=== PATIENT | female | born 1955 | race Caucasian/White ===

== ENCOUNTER 2016-06-12 17:30 | Emergency (ER) | payer BC ==
[2016-06-12 20:43] VITALS: BP 150/78
--- NOTE | 2016-06-13 13:20 | CR ---
INDICATION: Left shoulder pain. LEFT SHOULDER, COMPLETE: Four views of the left shoulder were obtained 2016. No comparisons were available. Very minimal degenerative changes are noted at the AC joint. The glenohumeral joint appears to be intact. There appears to be some minimal calcification near the greater tuberosity, raising question of minimal calcific tendinitis. No other bone or joint abnormality was identified. IMPRESSION: 1. Minimal degenerative changes AC joint. 2. Question minimal calcific tendinitis. 3. No definite acute abnormality. [facility]
--- NOTE | 2016-06-13 13:21 | CR ---
INDICATION: Chest pain - left shoulder pain. CHEST: PA and lateral views of the chest, 06/12/2016, were compared with 2010, revealing evidence of exogenous obesity. The heart did not appear to be enlarged. The aorta is somewhat tortuous. Overlying snaps are noted. Fusion is noted in the lower cervical spine. An active infiltrate or effusion was not identified. No significant scoliosis is seen on today's examination. IMPRESSION: No acute process. MTDD
--- NOTE | 2016-06-14 09:40 | ER ---
DATE SEEN: 06/12/2016 TIME SEEN: The patient was seen at 1956 hours. CHIEF COMPLAINT: This 61-year-old has 3/10 chest pain, it is sternal and increases with coughing. No difficulty sleeping last night, but it came on last night. She feels slightly lightheaded. This is a new chest pain, never had chest pain before. Mild diaphoresis and most significant she feels her arms are heavy. This is very new and unusual for her. In reviewing her activities of daily living, her , while she wa off to [place], took me aside as related to me that she does very little housekeeping. He has a detailer to come and take care of her ultrasound tester. She has diabetes and she was recently seen at [facility] and has lost 100% vision in her left eye and has 25% loss of the right eye secondary to diabetic retinopathy. She has been taking high doses of prednisone, now has tapered down to 10 mg prednisone daily. She does not walk very much. She watches TV a lot, is blind in the left eye. She gets short of breath with moving around and walking. She smokes a pack of cigarettes a day. Uses insulin and oral hypoglycemics. She does not drive. She used thyroid medicine in the past, not on thyroid medicine now. Previous surgery, status post bilateral MTP fusion surgery. Weight is approximately 200 pounds. She is 5 feet 5 inches. Her BMI IS 33.3 kilograms per square meter. MEDICATIONS: 1. Farxiga 10 mg daily. 2. Diflucan 150 mg daily. 3. Insulin 34 units daily. 4. Amaryl 4 mg one tablet in the morning, half tablet in the evening. 5. Artificial tears. 6. Amlodipine 5 mg daily. 7. BuSpar 15 mg daily. 8. Azathioprine 100 mg by mouth one time daily (the [facility] clinician has used azathioprine tried to get her off the prednisone and gradually decreased and tapering down the prednisone.). 9. Amitriptyline 100 mg one and half tablets at bedtime plus 25-mg tablets for a total of 175 mg at bedtime. 10.Lexapro 20 mg daily. 11.Seroquel 400 mg one and half tablets evening. 12.Trazodone 1 to 2 tablets every night at bedtime. 13.Mirapex 0.5 mg 1.5 tablets daily. 14.Ongoing antibiotics; Septra DS Friday, Friday, Friday. 15.Prednisone 10 mg daily. She had been tapering as of 05/06, 30 mg daily and then switched to 20 mg daily for 7 days on 05/09/2016. 16.Lasix 20 mg daily. 17.Omeprazole 40 mg daily. 18.Metformin 1000 mg b.i.d. 19.Vitamin C. 20.Albuterol as needed. 21.Metoprolol succinate daily. 22.Metronidazole gel for acne rosacea. 23.Tretinoin (Retin-A) 0.1% cream. 24.Vitamin D. 25.Hydroxyzine 50 mg p.r.n. at bedtime for insomnia 1 to 2 capsules. 26.Unisom 25 mg per day. 27.Ibuprofen 800 mg b.i.d. p.r.n. OTHER SURGERIES: Cholecystectomy, appendectomy, tonsillectomy, fusion of metatarsophalangeal joints of bilateral lower extremities, keratomileusis, cervical fusion C5-C6, diskectomy, left total knee replacement and open left knee arthroscopy. Chronic anxiety. REVIEW OF SYSTEMS: HEENT: Vision compromise from eyes, 100% loss in left eye and right eye is 25% decreased. GENERAL: Personality disorder. Borderline personality. Degenerative disk and lumbar spine disc disease, arthritis secondary to rheumatoid arthritis, GERD, hypertension, chronic kidney disease, myalgia, myositis, sinusitis, noncardiac chest pain, opioid dependence. History of small bowel obstruction, type 2 diabetes, asthma, intermittent chest discomfort which has been going on for the last 8 days. CARDIORESPIRATORY: Otherwise, negative. No shortness of breath or cough, no chronic obstructive lung disease. She is in denial regarding obstructive lung disease even though she smokes a cigarette a day. She is emphatic she does not have chronic lung disease. "She has been told by her doctors her lungs are perfectly normal." (Later her took me aside to talk confidentially about her health when when she was in the X-ray department. He does not want her to know what he said to me, otherwise she would be very angry with him). GASTROINTESTINAL: Denies nausea, vomiting, diarrhea, constipation, blood in the stool, black tarry changes in stools. MUSCULOSKELETAL: Marked weakness. She has noted decreased arm strength last night. Denies falls. : Negative. PHYSICAL EXAMINATION: VITAL SIGNS: Blood pressure 135/78, heart rate 107, respirations 15, oxygen saturation 95% on room air, temperature 37.6 degrees. The patient is 90.718 kilos. BMI is 33.3. GENERAL: Overweight woman who is very emphatic on what disease she does and does not have. She denies emphatically she does not have chronic lung disease. HEENT: PERRLA intact. Left eye opacification, right eye marked retinal arterial narrowing and moderate copper wiring. Some retinal arterial narrowing, mild pale discoloration of macular degeneration, no focal hard or soft exudates, no retinal detachment. No suggestion of laser therapy. Pharynx without erythema. No cervical adenopathy. No bruits in neck. LUNGS: Clear to auscultation without rales, rhonchi, or wheezes. HEART: S1, S2. No murmur. No chest wall discomfort. ABDOMEN: Soft. No guarding. No abdominal discomfort. Increased abdominal girth. No tenderness noted. EXTREMITIES: Lower extremities without edema. NEUROLOGICAL: Deep tendon reflexes, upper extremities present. Knee jerks present. Ankle jerks absent. Decreased sensation in lower extremities. Sensitivity to touch. Lower extremities (peripheral neuropathy). Gait appropriate. Strength appropriate, but she complains she is weak all over. LABORATORY DATA: White count 11,500, PMNs 85, lymphs 10, monos 5, hemoglobin 15.2, D-dimer less than 100. Automated chemistry; sodium 135, potassium 4.2, chloride 104, bicarb 20, low [id number] ratio of 23 and slightly elevated. Creatinine 0.6, BUN 14, glucose 188, ALT trace elevated at 28, AST is 17, troponin less than 0.01. Albumin slightly on the high 4.5, total protein 7.8, TSH 0.63. While the patient was getting a chest x-ray, her took me off to a different room to talk to me separately and stated she would get very angry at him if she knew he was talking to me about her. He has noted: 1. Progressive mental fall away. 2. Decrease in vision. 3. Less activity, sits around the house, does get up and walk around, but mostly sits in a chair and watches TV all day. 4. Smokes a pack of cigarettes per day and is "in your face" if you should even raise a question of stopping smoking. She is very angry about that and very defensive. 5. He is discouraged by her behavior and also inadequate activity. She is a couch potato. CHEST X-RAY: No infiltrate noted. Mild cardiomegaly. ASSESSMENT: 1. The patient's chief complaint, marked heaviness in the arm, weakness secondary to prednisone use. 2. Retinal vascular changes secondary to diabetic retinopathy with left eye blindness and right eye 25%, decrease of vision on the basis of [facility] reports and also patient's retinal macular degeneration. 3. Obesity. 4. Sedentary activity. 5. Personality disorder. 6. Hypothyroidism. 7. Renal disease. 8. Generalized myalgia. 9. Rheumatoid arthritis. 10.History of small bowel obstruction. 11.Previous cervical disk surgery with fusion and radiculopathy. 12.Arthritis. 13.Anxiety. 14.Left shoulder discomfort, AC joint arthritis, otherwise no evidence of abnormality. No subluxation. Decreased range of motion secondary to rheumatoid arthritis. Probably, decreased use of her shoulder. No evidence for cardiomegaly. 15. Very defensive about her smoking and in denial of COPD. In denial about the mental fall away. 16. Diabetic peripheral neuropathy. 17. Diabetic GI autonomic neuropathy. OTHER DIAGNOSES: 1. Diabetic retinopathy. 2. Treated hypothyroidism in the past and had no suggestion of hypothyroidism present. 3. Obesity. 4. Deconditioning. 5. Diabetes. 6. The patient stated that she has never had an angiogram, but her notes that she had angiogram 04/17. She does not remember anything apparently at that occasion. She lost consciousness and has complete amnesia about the angiogram. She did not remember anything because of excessive opiate use. 7. Progressive mental fall away. 8. Personality disorder. The patient is "somewhat in my face". She is very adamant. She does not want to stop smoking. She is very defensive. She was angry that I should bring up the idea that she needs a nicotine patch and Nicorette gum to decrease diabetic complications, cardiovascular changes. 9. Significant deconditioning. 10.Ideally, her would like to have her get a MOCA test, because of her mental fall away. To suggest such testing makes her very angry, consequently, to save face, I had to apologize for even bringing up the issue. She was somewhat forgiving of this, but I have a sense that it annoyed her that I considered even introducing medication to help her stop smoking or even address the issue of mental fall away. PLAN: The patient is to increase activity and walking. Continue current medications. Follow up with doctor in a week. Informed that her decreased strength is a function of having used prednisone. It is good that she is gradually tapering off prednisone and using azathioprine. She is still on a high dose of prednisone. Deconditioning and not walking is a significant problem for her. Follow up with the doctor in a week. ADDITIONAL COMMENT: She is allergic to Ativan, Cymbalta, Depakote, Duragesic, and erythromycin. /[id number] JARRED/TYLER SHAW
== END 2016-06-12 21:04 | disposition home or self-care (01) ==
LOC: FB.ED 17:30
DX: R53.1 Weakness (principal); E11.319 Type 2 diabetes mellitus with unspecified diabetic retinopathy without macular edema; E03.9 Hypothyroidism, unspecified; M06.9 Rheumatoid arthritis, unspecified; F41.9 Anxiety disorder, unspecified; F60.9 Personality disorder, unspecified; M79.1 Myalgia; M19.90 Unspecified osteoarthritis, unspecified site; K21.9 Gastro-esophageal reflux disease without esophagitis; I12.9 Hypertensive chronic kidney disease with stage 1 through stage 4 chronic kidney disease, or unspecified chronic kidney disease; N18.9 Chronic kidney disease, unspecified; J45.909 Unspecified asthma, uncomplicated; F17.210 Nicotine dependence, cigarettes, uncomplicated; E66.9 Obesity, unspecified; Z68.33 Body mass index [BMI] 33.0-33.9, adult; Z79.4 Long term (current) use of insulin; Z79.899 Other long term (current) drug therapy; Z90.49 Acquired absence of other specified parts of digestive tract; Z96.652 Presence of left artificial knee joint; Z98.890 Other specified postprocedural states
CPT/HCPCS: 36415; 71020; 73030-LT; 80053; 83880; 84443; 84484; 85025; 85379; 93005; 99283

== ENCOUNTER 2016-10-11 13:55 | Emergency (ER) | payer BC ==
[2016-10-11] MEDS ORDERED: HYDROmorphone 2 MG/ML SDV IVPUSH ONE ×2 (14:28→15:33)
[2016-10-11] MEDS ORDERED: diphenhydrAMINE 50 MG/ML SDV IVPUSH ONE (14:29)
[2016-10-11] MEDS ORDERED: Metoclopramide 10 MG/2 ML SDV IVPUSH ONE (14:30)
[2016-10-11 15:35] VITALS: BP 119/66
--- NOTE | 2016-10-15 13:36 | ER ---
DATE SEEN: 10/11/2016 HISTORY OF PRESENT ILLNESS: Carla presents because she has developed pain in her foot and also was given intravenous antibiotic therapy for infection that occurred with her right toe as of September 09. Apparently, at that time, an orthopedic screw was removed and she was treated with antibiotic. The year before, she had screws placed for hallux valgus revision. The patient is diabetic. She takes Farxiga 10 mg daily, dapagliflozin, propanediol 10 mg daily plus metformin 1000 mg daily plus glimepiride 4 mg daily. Other medication for depression, escitalopram 20 mg daily, amitriptyline 125 mg at bedtime, amlodipine for hypertension 5 mg daily, Metoprolol-XL 25 mg daily. REVIEW OF SYSTEMS: The patient denies early satiety. Denies compromise in vision, but she when she thinks about it, she does have slight compromise of vision. She wears glasses. She has significant peripheral diabetic neuropathy. So much so, it goes from mid calf to her feet and has severe burning. This burning has gotten extensively worse after she has been put on intravenous daily antibiotic therapy of Rocephin 1 g IV, (as of September 09, 2016). She does not feel this is related to her Rocephin therapy. Also she denies autonomic nervous system bowel symptoms - she denies constipation, decreased or delayed transit time, GERD, or increased satiety with eating. She denies headaches. REVIEW OF SYSTEMS: HEENT: Denies headaches. Denies sinusitis, sore throat, neck pain. CARDIORESPIRATORY: Denies shortness of breath, cough, chest pain. Irregular rate and rhythm. No near syncope or syncope. GI: Denies nausea, vomiting, diarrhea, constipation, blood in the stool, black tarry stool, or reflex or hepatitis. : Denies frequency, urgency, or dysuria. MUSCULOSKELETAL: Denies chronic muscle aches. ALLERGIES: The patient has allergies to multiple medicines, Depakote, duloxetine, erythromycin base, fentanyl (the Duragesic patch cause irritation, contact dermatitis, but did not have an allergic reaction to the medication itself), lorazepam. PHYSICAL EXAMINATION: VITAL SIGNS: Blood pressure 130/75, heart rate 88 and regular, respirations 18, oxygen saturation 98%. Temperature is 36.4 degrees centigrade. CONSTITUTIONAL: Alert, mildly overweight woman, who is sitting in a [employer] chair. She is getting her chronic daily antibiotic therapy for the infection in her right hallux. HEENT: PERRLA intact. Pharynx without abnormality. NECK: Supple. LUNGS: Clear to auscultation without rales, rhonchi, or wheezes. HEART: S1, S2. No irregular rate or rhythm. ABDOMEN: Soft. No guarding. No abdominal discomfort. No rebound. No distention. No CVA percussion tenderness. PELVIC: Not performed. LOWER EXTREMITIES: Without edema. The right lower extremity has cellulitis, which is being treated with no evidence for erythema presently. Deep tendon reflexes hypoactive in upper and lower extremities. NEURO: Cranial nerves 2 through 12 intact. Oriented x3. Gait intact. She is exquisitely sensitive to the stocking distribution in her lower extremities. Any touch causes pain and discomfort. ASSESSMENT: 1. The patient has extensive peripheral diabetic neuropathy. She has used Lyrica in the past, but she noted it did not make any difference. In fact, made her depression worse. She is willing to use Lyrica now because she thought perhaps it might be helpful to her diabetic neuropathy and is going to try even if her depression gets slightly worse. 2. Insulin-dependent diabetes. 3. Cellulitis, right hallux is healing resolving (wonder if there is osteomyelitis and it is the reason why she getting intravenous therapy). 4. Overweight. 5. Has an obligation to go to a social event this weekend and "family wants her to be on top of her game". 6. Diabetic peripheral neuropathy is getting the best of her. She would like some medicine for this. PLAN: 1. Trial of Lyrica. The patient wants to try it even if it makes her depression worse, but if it makes a difference in her pain in her legs, she wants to try Lyrica 100 mg daily for three days and then increase it to b.i.d. 2. She was given Dilaudid 1 mg IV, and this seemed to make a dramatic difference as she felt and would give her an additional 0.5 mg before she left. 3. Plan to treat the peripheral neuropathy with Lyrica and also she has oxycodone without Tylenol. She theoretically is allergic to Tylenol. She is also allergic to valproic acid, duloxetine, erythromycin base, fentanyl, lorazepam. 4. Apparently, she is not allergic to fentanyl, but she is allergic to the contact adhesive. She would like very much to try the fentanyl, so she does not have the up and down with therapeutic level of p.o. pain medicine. She will be getting a prescription for fentanyl patches one every 72 hours, 50 mcg. If necessary, she can use two patches of 50 mcg each for a total of 100 mcg. Follow up with doctor in a week. DIAGNOSES: 1. Peripheral diabetic neuropathy, extensive pain. 2. Cellulitis, right foot, resolving, treated with antibiotic. 3. Overweight. 4. Hypertension. 5. Diabetes, insulin dependent. TIME SEEN: The patient was seen at 1400 and 45 minutes spent with the patient. /[id number] JARRDE/TYLER SHAW
== END 2016-10-11 15:44 | disposition home or self-care (01) ==
LOC: FB.ED 13:55
DX: L03.115 Cellulitis of right lower limb (principal); E11.42 Type 2 diabetes mellitus with diabetic polyneuropathy; I10 Essential (primary) hypertension; Z79.4 Long term (current) use of insulin; Z79.899 Other long term (current) drug therapy; Z88.1 Allergy status to other antibiotic agents; Z88.8 Allergy status to other drugs, medicaments and biological substances
CPT/HCPCS: 96374; 96375; 96376; 99283; J1170; J1200; J2765

== ENCOUNTER 2017-12-05 22:39 | Inpatient (IN) | payer BC ==
[2017-12-05] MEDS ORDERED: Sodium Chloride 0.9% 1,000 ML IV ONE (23:32)
[2017-12-05] MEDS ORDERED: fentaNYL 100 MCG/2 ML SDV IVPUSH ONE (23:33)
[2017-12-05] MEDS ORDERED: Ondansetron 4 MG/2 ML SDV IVPUSH ONE (23:34)
--- NOTE | 2017-12-05 23:43 | EDM.PDOC ---
ED HPI GENERAL MEDICAL PROBLEM - General Chief Complaint: Abdominal Pain Stated Complaint: ABDOMINAL PAIN Time Seen by Provider: 12/05/17 23:14 Source of Information: Reports: Patient, Other History Limitations: Reports: No Limitations - History of Present Illness INITIAL COMMENTS - FREE TEXT/NARRATIVE: Carla is a 62-year-old slightly overweight woman nonsmoker, nonalcohol drinker, comes in with 2-3 days duration increasing abdominal pain and constipation and she's not had bowel movement 3 days. is giving her an enema with 0 results. She's also tried a citrate with 0 results only followed by vomiting after noon. Patient is blind. Does not eat extra fiber. Has not had a fever and denies back pain or street of e renal stones passage. Abdominal Pain Score (Numeric/FACES): 10 - Related Data Allergies Allergy/AdvReac Type Severity Reaction Status Date / Time divalproex sodium Allergy Itching Verified 12/06/17 01:45 [From Depakote] duloxetine [From Cymbalta] Allergy Rash Verified 12/06/17 01:45 erythromycin base Allergy Itching Verified 12/06/17 01:45 Home Meds: Home Meds QUEtiapine [SEROquel] 400 mg PO BEDTIME 10/11/16 [History] amLODIPine [Norvasc] 10 mg PO DAILY 10/11/16 [History] Aspirin [Halfprin] 81 mg PO DAILY 12/06/17 [History] Cholecalciferol (Vitamin D3) [Vitamin D3] 1,000 units PO DAILY 12/06/17 [History ] Escitalopram [Lexapro] 10 mg PO BEDTIME 12/06/17 [History] Glimepiride [Amaryl] 1 mg PO WITHDINNER 12/06/17 [History] Glimepiride [Amaryl] 2 mg PO WITHBREAKFAST 12/06/17 [History] Insulin Aspart [NovoLOG] 5 units SUBCUT TIDMEALS 12/06/17 [History] Insulin Degludec [Tresiba Flextouch U-100] 20 units SUBCUT BEDTIME 12/06/17 [ History] Lactulose 30 ml PO BID 12/06/17 [History] Metoprolol Succinate [Toprol XL] 25 mg PO DAILY 12/06/17 [History] Omeprazole 40 mg PO DAILY 12/06/17 [History] Pramipexole [Mirapex] 0.75 mg PO BEDTIME 12/06/17 [History] Travoprost [Travatan Z] 1 drop EYERT BEDTIME 12/06/17 [History] azaTHIOprine [Imuran] 200 mg PO DAILY 12/06/17 [History] hydrOXYzine pamoate [Vistaril] 25 mg PO BID PRN 12/06/17 [History] metFORMIN [Glucophage] 1,000 mg PO BIDMEALS 12/06/17 [History] predniSONE [Prednisone] 10 mg PO DAILY 12/06/17 [History] Past Medical History HEENT History: Reports: Impaired Vision, Other (See Below) Other HEENT History: pt legally blind Cardiovascular History: Reports: Hypertension Respiratory History: Reports: Asthma Gastrointestinal History: Reports: GERD, Other (See Below) Other Gastrointestinal History: snall bowel obstruction Genitourinary History: Reports: Renal Disease Musculoskeletal History: Reports: Arthritis Other Musculoskeletal History: n Psychiatric History: Reports: Addiction, Other (See Below) Other Psychiatric History: personality disorder Endocrine/Metabolic History: Reports: Diabetes, Type II - Infectious Disease History Infectious Disease History: Reports: Chicken Pox - Past Surgical History GI Surgical History: Reports: Colonoscopy Social & Family History - Family History Family Medical History: Noncontributory - Caffeine Use Caffeine Use: Reports: Soda ED ROS GENERAL - Review of Systems Review Of Systems: See Below Constitutional: Reports: Fatigue HEENT: Reports: No Symptoms, Other (Optic neuritis legally blind) Respiratory: Reports: No Symptoms, Other (Asthma symptomatic presently) Cardiovascular: Reports: No Symptoms, Other (Attention) Endocrine: Reports: No Symptoms GI/Abdominal: Reports: Abdominal Pain, Decreased Appetite, Distension, Nausea, Other (Gross small bowel obstruction surgical intervention) : Reports: Incontinence Musculoskeletal: Reports: Other (Generalized myalgiafibromyalgia) Skin: Reports: No Symptoms Neurological: Reports: No Symptoms Psychiatric: Reports: Anxiety (Personality disorder Anxiety history of), Depression, Other (Borderline personality disorder. His history of hospitalizations weeks ago for polysubstance abuse at [facility]) Immunologic: Reports: No Symptoms ED EXAM, GI/ABD - Physical Exam Exam: See Below Text/Narrative:: Agent has severe abdominal pain is mildly overweight denies vomiting and has tried with an enema and make citrate which resulted in vomiting Exam Limited By: No Limitations General Appearance: Alert, WD/WN, Severe Distress Eyes: Bilateral: Normal Appearance Ears: Normal External Exam, Normal TMs Throat/Mouth: Normal Inspection, Other (Dry mucosal) Head: Atraumatic, Normocephalic Neck: Normal Inspection, Supple, Non-Tender, Full Range of Motion Respiratory/Chest: No Respiratory Distress, Lungs Clear, Normal Breath Sounds, No Accessory Muscle Use, Chest Non-Tender Cardiovascular: Normal Peripheral Pulses, Regular Rate, Rhythm, No Edema, No JVD , No Murmur, No Rub GI/Abdominal Exam: Distended, Guarding, Rebound, Tender, Abnormal Bowel Sounds, Other ( Moderate heeltap induced abdominal pain suggesting peritonitis mild CVA percussion tenderness bilateral) (Female) Exam: Deferred Back Exam: Normal Inspection Extremities: Normal Inspection Neurological: Alert, Oriented, CN II-XII Intact, Normal Cognition, Normal Gait, Normal Reflexes, No Motor/Sensory Deficits, Other (Cranial nerve II is abnormal because she has blindness) Psychiatric: Normal Affect, Other (A pleasant woman) Skin Exam: Warm, Dry, Intact Course - Vital Signs Last Recorded V/S: Last Vital Signs Temp 36.8 C 12/06/17 16:00 Pulse 93 12/06/17 16:00 Resp 20 12/06/17 16:00 BP 124/65 12/06/17 16:00 Pulse Ox 92 L 12/06/17 16:00 - Orders/Labs/Meds Labs: Laboratory Tests 12/05/17 12/05/17 12/05/17 Range/Units 23:50 23:50 23:50 WBC 13.1 H (4.5-12.0) X10-3/uL RBC 4.99 (3.23-5.20) x10(6)uL Hgb 13.7 (11.5-15.5) g/dL Hct 43.2 (30.0-51.3) % MCV 86.6 (80-96) fL MCH 27.4 L (27.7-33.6) pg MCHC 31.6 L (32.2-35.4) g/dL RDW 18.2 H (11.5-15.5) % Plt Count 556 H (125-369) X10(3)uL MPV 6.9 L (7.4-10.4) fL Neut % (Auto) 80.8 (46-82) % Lymph % (Auto) 11.3 L (13-37) % [place] % (Auto) 7.2 (4-12) % Eos % (Auto) 0 L (1.0-5.0) % Baso % (Auto) 0 (0-2) % Neut # (Auto) 10.6 H (1.6-8.3) # Lymph # (Auto) 1.5 (0.6-5.0) # [place] # (Auto) 0.9 (0.0-1.3) # Eos # (Auto) 0.0 (0.0-0.8) # Baso # (Auto) 0.1 (0.0-0.2) # Add Manual Diff Neutrophils % (Manual) (46-82) % Band Neutrophils % (0-6) % Lymphocytes % (Manual) (13-37) % Monocytes % (Manual) (4-12) % Eosinophils % (Manual) (0-5) % Anisocytosis Sodium (135-145) mmol/L Potassium (3.5-5.3) mmol/L Chloride (100-110) mmol/L Carbon Dioxide (21-32) mmol/L BUN (7-18) mg/dL Creatinine (0.55-1.02) mg/dL Est Cr Clr Drug Dosing Estimated GFR (MDRD) (>60) BUN/Creatinine Ratio (9-20) Glucose (80-116) mg/dL Lactic Acid 1.9 (0.4-2.2) mmol/L Calcium (8.6-10.2) mg/dL Total Bilirubin (0.1-1.3) mg/dL AST (5-25) IU/L ALT (12-36) U/L Alkaline Phosphatase (56-112) IU/L Troponin I < 0.017 L (<0.017-0.056) ng/mL Total Protein (6.0-8.0) g/dL Albumin (3.2-4.6) g/dL Globulin g/dL Albumin/Globulin Ratio TSH, Ultra Sensitive (0.36-3.74) IU/mL Urine Color (YELLOW) Urine Appearance (CLEAR) Urine pH (5.0-6.5) Ur Specific [place] (1.010-1.025) Urine Protein (NEGATIVE) mg/dL Urine Glucose (UA) (NEGATIVE) mg/dL Urine Ketones (NEGATIVE) mg/dL Urine Occult Blood (NEGATIVE) Urine Nitrite (NEGATIVE) Urine Bilirubin (NEGATIVE) Urine Urobilinogen (NEGATIVE) mg/dL Ur Leukocyte Esterase (NEGATIVE) Urine RBC (0) Urine WBC (0) Ur Squamous Epith Cells (NS,R,O) Urine Bacteria (NS) 12/05/17 12/05/17 12/06/17 Range/Units 23:50 23:50 01:10 WBC (4.5-12.0) X10-3/uL RBC (3.23-5.20) x10(6)uL Hgb (11.5-15.5) g/dL Hct (30.0-51.3) % MCV (80-96) fL MCH (27.7-33.6) pg MCHC (32.2-35.4) g/dL RDW (11.5-15.5) % Plt Count (125-369) X10(3)uL MPV (7.4-10.4) fL Neut % (Auto) (46-82) % Lymph % (Auto) (13-37) % [place] % (Auto) (4-12) % Eos % (Auto) (1.0-5.0) % Baso % (Auto) (0-2) % Neut # (Auto) (1.6-8.3) # Lymph # (Auto) (0.6-5.0) # [place] # (Auto) (0.0-1.3) # Eos # (Auto) (0.0-0.8) # Baso # (Auto) (0.0-0.2) # Add Manual Diff Neutrophils % (Manual) (46-82) % Band Neutrophils % (0-6) % Lymphocytes % (Manual) (13-37) % Monocytes % (Manual) (4-12) % Eosinophils % (Manual) (0-5) % Anisocytosis Sodium 139 (135-145) mmol/L Potassium 3.5 (3.5-5.3) mmol/L Chloride 102 (100-110) mmol/L Carbon Dioxide 22 (21-32) mmol/L BUN 12 (7-18) mg/dL Creatinine 0.8 (0.55-1.02) mg/dL Est Cr Clr Drug Dosing TNP Estimated GFR (MDRD) > 60 (>60) BUN/Creatinine Ratio 15.0 (9-20) Glucose 155 H (80-116) mg/dL Lactic Acid (0.4-2.2) mmol/L Calcium 9.9 (8.6-10.2) mg/dL Total Bilirubin 0.5 (0.1-1.3) mg/dL AST 32 H (5-25) IU/L ALT 90 H (12-36) U/L Alkaline Phosphatase 103 (56-112) IU/L Troponin I (<0.017-0.056) ng/mL Total Protein 8.0 (6.0-8.0) g/dL Albumin 3.7 (3.2-4.6) g/dL Globulin 4.3 g/dL Albumin/Globulin Ratio 0.9 TSH, Ultra Sensitive 1.90 (0.36-3.74) IU/mL Urine Color Yellow (YELLOW) Urine Appearance Slightly cloudy (CLEAR) Urine pH 7.0 H (5.0-6.5) Ur Specific [place] 1.005 L (1.010-1.025) Urine Protein Negative (NEGATIVE) mg/dL Urine Glucose (UA) >1000 H (NEGATIVE) mg/dL Urine Ketones Negative (NEGATIVE) mg/dL Urine Occult Blood Moderate H (NEGATIVE) Urine Nitrite Positive H (NEGATIVE) Urine Bilirubin Negative (NEGATIVE) Urine Urobilinogen Normal (NEGATIVE) mg/dL Ur Leukocyte Esterase Negative (NEGATIVE) Urine RBC 5-10 (0) Urine WBC 0-5 (0) Ur Squamous Epith Cells Few H (NS,R,O) Urine Bacteria Moderate H (NS) 12/06/17 12/06/17 Range/Units 06:50 06:50 WBC 14.2 H (4.5-12.0) X10-3/uL RBC 4.88 (3.23-5.20) x10(6)uL Hgb 13.7 (11.5-15.5) g/dL Hct 42.8 (30.0-51.3) % MCV 87.6 (80-96) fL MCH 27.9 (27.7-33.6) pg MCHC 31.9 L (32.2-35.4) g/dL RDW 18.1 H (11.5-15.5) % Plt Count 572 H (125-369) X10(3)uL MPV 6.9 L (7.4-10.4) fL Neut % (Auto) (46-82) % Lymph % (Auto) (13-37) % [place] % (Auto) (4-12) % Eos % (Auto) (1.0-5.0) % Baso % (Auto) (0-2) % Neut # (Auto) (1.6-8.3) # Lymph # (Auto) (0.6-5.0) # [place] # (Auto) (0.0-1.3) # Eos # (Auto) (0.0-0.8) # Baso # (Auto) (0.0-0.2) # Add Manual Diff Yes Neutrophils % (Manual) 87 H (46-82) % Band Neutrophils % 3 (0-6) % Lymphocytes % (Manual) 5 L (13-37) % Monocytes % (Manual) 4 (4-12) % Eosinophils % (Manual) 1 (0-5) % Anisocytosis Moderate H Sodium (135-145) mmol/L Potassium (3.5-5.3) mmol/L Chloride (100-110) mmol/L Carbon Dioxide (21-32) mmol/L BUN (7-18) mg/dL Creatinine (0.55-1.02) mg/dL Est Cr Clr Drug Dosing Estimated GFR (MDRD) (>60) BUN/Creatinine Ratio (9-20) Glucose (80-116) mg/dL Lactic Acid (0.4-2.2) mmol/L Calcium (8.6-10.2) mg/dL Total Bilirubin (0.1-1.3) mg/dL AST (5-25) IU/L ALT (12-36) U/L Alkaline Phosphatase (56-112) IU/L Troponin I < 0.017 L (<0.017-0.056) ng/mL Total Protein (6.0-8.0) g/dL Albumin (3.2-4.6) g/dL Globulin g/dL Albumin/Globulin Ratio TSH, Ultra Sensitive (0.36-3.74) IU/mL Urine Color (YELLOW) Urine Appearance (CLEAR) Urine pH (5.0-6.5) Ur Specific [place] (1.010-1.025) Urine Protein (NEGATIVE) mg/dL Urine Glucose (UA) (NEGATIVE) mg/dL Urine Ketones (NEGATIVE) mg/dL Urine Occult Blood (NEGATIVE) Urine Nitrite (NEGATIVE) Urine Bilirubin (NEGATIVE) Urine Urobilinogen (NEGATIVE) mg/dL Ur Leukocyte Esterase (NEGATIVE) Urine RBC (0) Urine WBC (0) Ur Squamous Epith Cells (NS,R,O) Urine Bacteria (NS) Meds: Medications Discontinued Medications Generic Name Dose Route Start Last Admin Trade Name Freq PRN Reason Stop Dose Admin Acetaminophen 650 mg 12/06/17 03:54 Tylenol PO Q4H PRN Pain (Mild 1-3)/fever Bisacodyl 5 mg 12/06/17 03:54 Dulcolax PO DAILY PRN Constipation Enoxaparin Sodium 40 mg 12/06/17 09:00 12/06/17 10:35 Lovenox SUBCUT 40 mg DAILY MAZIN Administration Escitalopram Oxalate 10 mg 12/06/17 21:00 Lexapro PO BEDTIME MAZIN Fentanyl 100 mcg 12/05/17 23:33 12/05/17 23:51 Sublimaze IVPUSH 12/05/17 23:34 100 mcg ONETIME ONE Administration Fentanyl 100 mcg 12/06/17 01:03 12/06/17 01:10 Sublimaze IVPUSH 12/06/17 01:04 100 mcg ONETIME ONE Administration Fentanyl 100 mcg 12/06/17 09:19 Sublimaze IVPUSH Q30M PRN Abdominal Pain Haloperidol Lactate 1 mg 12/06/17 14:31 12/06/17 14:43 Haldol IM 12/06/17 14:32 1 mg ONETIME ONE Administration Hydrocortisone Sodium Succinate 25 mg 12/06/17 09:30 12/06/17 10:41 Solu-Cortef IVPUSH 25 mg Q8H MAZIN Administration Hydromorphone HCl 1 mg 12/06/17 03:16 12/06/17 03:20 Dilaudid IVPUSH 12/06/17 03:17 1 mg ONETIME ONE Administration Hydromorphone HCl Confirm 12/06/17 03:21 12/06/17 09:48 Dilaudid Administered 12/06/17 03:22 Not Given Dose 2 mg .ROUTE .STK-MED ONE Hydromorphone HCl 0.5 mg 12/06/17 03:42 12/06/17 12:45 Dilaudid IVPUSH 0.5 mg Q2H PRN Administration Pain (severe 7-10) Sodium Chloride 1,000 mls @ 999 mls/hr 12/05/17 23:32 12/06/17 03:31 Normal Saline IV 12/06/17 00:32 999 mls/hr .BOLUS ONE Administration Lactated Ringer's 1,000 mls @ 125 mls/hr 12/06/17 03:45 Ringers, Lactated IV ASDIRECTED MAZIN Sodium Chloride 1,000 mls @ 100 mls/hr 12/06/17 00:55 12/06/17 08:51 Normal Saline IV 100 mls/hr ASDIRECTED MAZIN Administration Potassium Chloride/Sodium Chloride 1,000 mls @ 125 mls/hr 12/06/17 09:45 08/18 10:33 Normal Saline With 20 Meq Kcl IV 125 mls/hr Q8H MAZIN Administration Influenza Virus Vaccine 1 each 12/06/17 04:11 Pharmacy To Dose - Influenza Vaccine IM 12/06/17 04:12 ONETIME ONE Insulin Human Lispro 0 unit 12/06/17 12:00 12/06/17 11:10 Humalog SUBCUT Not Given TIDMEALS [facility] Protocol Iopamidol 100 ml 12/06/17 00:10 12/06/17 00:44 Isovue-370 (76%) IV 12/06/17 00:11 100 ml . DIRECTED ONE Administration Latanoprost 0 ml 12/06/17 21:00 Xalatan 0.005% Ophth Soln EYERT BEDTIME MAZIN Lidocaine HCl 6 ml 12/06/17 09:15 12/06/17 09:11 Glydo MM 12/06/17 09:16 6 ml ONETIME ONE Administration Lidocaine HCl Confirm 12/06/17 08:48 12/06/17 09:12 Glydo Administered 12/06/17 08:49 Not Given Dose 6 ml .ROUTE .STK-MED ONE Lidocaine HCl 6 ml 12/06/17 09:15 12/06/17 09:12 Glydo MM 12/06/17 09:16 Not Given ONETIME ONE Lorazepam Confirm 12/06/17 01:57 12/06/17 08:38 Ativan Administered 12/06/17 01:58 Not Given Dose 2 mg .ROUTE .STK-MED ONE Lorazepam 1 mg 12/06/17 01:50 12/06/17 01:57 Ativan IVPUSH 12/06/17 01:51 1 mg ONETIME ONE Administration Lorazepam 1 mg 12/06/17 09:20 12/06/17 10:36 Ativan IVPUSH 1 mg Q8H PRN Administration agitation, restless legs Metoprolol Tartrate 2.5 mg 12/06/17 10:00 12/06/17 13:38 Lopressor IVPUSH 2.5 mg Q4H MAZIN Administration Ondansetron HCl 4 mg 12/05/17 23:34 12/05/17 23:51 Zofran IVPUSH 12/05/17 23:35 4 mg ONETIME ONE Administration Ondansetron HCl 4 mg 12/06/17 03:42 Zofran IV Q4H PRN Nausea/Vomiting Ondansetron HCl 4 mg 12/06/17 03:54 Zofran Odt PO Q4H PRN nausea, able to take PO Pantoprazole Sodium 40 mg 12/06/17 09:30 12/06/17 10:45 Protonix Iv IVPUSH 40 mg Q24H MAZIN Administration Quetiapine Fumarate 400 mg 12/06/17 21:00 Seroquel PO BEDTIME MAZIN Departure - Departure Time of Disposition: 00:30 Disposition: Admitted As Inpatient 67 Condition: Good Clinical Impression: Depressive personality disorder, Abdominal pain in female patient, H/O psychiatric hospitalization, History of cervical spinal surgery, Diabetic foot infection, Depression with somatization Hypertension Qualifiers: Hypertension type: essential hypertension Qualified Code(s): I10 - Essential ( primary) hypertension - Discharge Information
[2017-12-06] MEDS ORDERED: Iopamidol 755 Mg/ML 100 ML Bottle IV ONE (00:10)
[2017-12-06] MEDS: Sodium Chloride 0.9% 1,000 ML IV SCH ×2 (00:55→08:51)
[2017-12-06] MEDS ORDERED: fentaNYL 100 MCG/2 ML SDV IVPUSH ONE (01:03)
[2017-12-06] MEDS ORDERED: LORazepam 2 MG/ML SDV IVPUSH ONE (01:50)
[2017-12-06] MEDS ORDERED: LORazepam 2 MG/ML SDV ONE (01:57)
[2017-12-06] MEDS ORDERED: HYDROmorphone 2 MG/ML SDV IVPUSH ONE (03:16)
[2017-12-06] MEDS ORDERED: HYDROmorphone 2 MG/ML SDV ONE (03:21)
[2017-12-06] MEDS ORDERED: Ondansetron 4 MG/2 ML SDV IV PRN (03:42)
[2017-12-06] MEDS ORDERED: Lactated Ringers 1,000 ML IV SCH (03:45)
[2017-12-06] MEDS ORDERED: Bisacodyl 5 MG Tab PO PRN (03:54)
[2017-12-06] MEDS ORDERED: Ondansetron 4 MG Tab.DIS PO PRN (03:54)
[2017-12-06] MEDS ORDERED: Acetaminophen 325 MG Tab PO PRN (03:54)
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
[2017-12-06] MEDS ORDERED: Lidocaine 2% HCl 6 ML JEL.PF.APP ONE (08:48)
[2017-12-06] MEDS ORDERED: Non-Formulary Medication 1 Each (Cholecalciferol (Vitamin D3) [Vitamin D3] 1,000 UNITS) PO SCH (09:00)
[2017-12-06] MEDS ORDERED: Enoxaparin 40 MG/0.4 ML Syringe SUBCUT SCH (09:00)
[2017-12-06] MEDS ORDERED: Non-Formulary Medication 1 Each (Amlodipine [Norvasc] 10 MG) PO SCH (09:00)
[2017-12-06] MEDS ORDERED: Lidocaine 2% HCl 6 ML JEL.PF.APP MM ONE ×2 (09:15)
[2017-12-06] MEDS ORDERED: fentaNYL 100 MCG/2 ML SDV IVPUSH PRN (09:19)
[2017-12-06] MEDS ORDERED: LORazepam 2 MG/ML SDV IVPUSH PRN (09:20)
[2017-12-06] MEDS ORDERED: Hydrocortisone Sodium Succinate 100 MG/2 ML SDV IVPUSH SCH (09:30)
[2017-12-06] MEDS ORDERED: Pantoprazole 40 MG Vial IVPUSH SCH (09:30)
--- NOTE | 2017-12-06 09:44 | PCM.HP ---
H&P History of Present Illness - General Date of Service: 12/06/17 Admit Problem/Dx: Admission Diagnosis/Problem Admission Diagnosis/Problem Abdominal discomfort Source of Information: Patient, Old Records, Provider History Limitations: Reports: Altered Mental Status - History of Present Illness Initial Comments - Free Text/Narative: Patient is a 62-year-old female with a very complex past medical history who presents with reported 5 days of abdominal pain, nausea, vomiting. She tells me she was in her usual state of good health up until 5 days ago when she started to develop gradually but rapidly progressive abdominal pain. She continued to attempt to eat but vomited up everything that she tried to eat. She had no fevers but did have chills and sweats. Pain continued to worsen until she finally presented to the emergency department the night prior to admission, was evaluated and found to have a possible small bowel obstruction. Was admitted for further treatment and monitoring. On admission white count was 13.1, electrolytes and chemistries were fairly unremarkable. She had mild elevation in her LFTs which is chronic for her. Urine was positive for nitrates glucose and blood but with regards to urine sxs patient was asymptomatic. Past medical history very complex and includes: #1 recent hospitalization 11/21/17 for encephalopathy secondary to polypharmacy and psychiatric illness. Was inpatient for 7 days. #2 history of optic neuritis on immunosuppressant therapy with prednisone, currently taking 10-20 mg a day. This has been adjusted over the last 6 months multiple times to 20 mg then back down to 10 mg. Patient is blind in the left eye, still has some vision in the right eye. #3 hypertension #4 asthma #5 diabetes mellitus type 2 with last A1c 8.0% on 08/26/17. #6 history of small bowel obstruction requiring a repair in the remote past. Recent clinic visit on 11/10/17. Pain, nausea, vomiting and no passing of gas. This resolved. #7 gastroesophageal reflux disease #8 rheumatoid arthritis with positive rheumatoid factor. It is unclear to me whether or not this is been treated and I don't see any follow-up with rheumatology. #9 history of right first metatarsal arthrodesis infection with MSSA in 2017 requiring long course IV antibiotics for 6 weeks. #10 significant psychiatric illness including borderline personality disorder, anxiety and depression, opioid dependence in remission, with recent psychiatric hospitalization resulting in multiple medication changes. #11 fibromyalgia Family history: Mother and father both in old age. Social history: The patient is and lives with her . Children are grown and gone. She smokes 1-1-1/2 packs of cigarettes per day. She has a rare beer but does not drink on a regular basis. She is not employed. Medication list and allergies reviewed. The patient has an allergy to the Duragesic adhesive but not to fentanyl, she has become agitated with Ativan in the past but received it last evening without difficulty. Abdominal Pain Score (Numeric/FACES): 10 - Related Data Allergies/Adverse Reactions: Allergies Allergy/AdvReac Type Severity Reaction Status Date / Time divalproex sodium Allergy Itching Verified 12/06/17 01:45 [From Depakote] duloxetine [From Cymbalta] Allergy Rash Verified 12/06/17 01:45 erythromycin base Allergy Itching Verified 12/06/17 01:45 Home Medications: Home Meds Escitalopram [Lexapro] 10 mg PO BEDTIME 10/11/16 [History] Glimepiride 2 mg PO DAILY 10/11/16 [History] Metoprolol Succinate [Toprol XL] 25 mg PO DAILY 10/11/16 [History] QUEtiapine [SEROquel] 400 mg PO BEDTIME 10/11/16 [History] amLODIPine [Norvasc] 10 mg PO DAILY 10/11/16 [History] Cholecalciferol (Vitamin D3) [Vitamin D3] 1,000 units PO DAILY 12/06/17 [History ] Metoprolol Succinate [Toprol XL] 25 mg PO DAILY 12/06/17 [History] Omeprazole 40 mg PO DAILY 12/06/17 [History] Pramipexole [Mirapex] 0.5 mg PO BEDTIME 12/06/17 [History] Travoprost [Travatan Z] 1 drop EYERT BEDTIME 12/06/17 [History] metFORMIN [Glucophage] 1,000 mg PO BIDMEALS 12/06/17 [History] predniSONE [Prednisone] 10 mg PO DAILY 12/06/17 [History] Past Medical History HEENT History: Reports: Impaired Vision, Other (See Below) Other HEENT History: pt legally blind Cardiovascular History: Reports: Hypertension Respiratory History: Reports: Asthma Gastrointestinal History: Reports: GERD, Other (See Below) Other Gastrointestinal History: snall bowel obstruction Genitourinary History: Reports: Renal Disease [employer] History: Reports: Musculoskeletal History: Reports: Arthritis Other Musculoskeletal History: n Psychiatric History: Reports: Addiction, Other (See Below) Other Psychiatric History: personality disorder Endocrine/Metabolic History: Reports: Diabetes, Type II - Infectious Disease History Infectious Disease History: Reports: Chicken Pox - Past Surgical History GI Surgical History: Reports: Colonoscopy Social & Family History - Family History Family Medical History: Noncontributory - Tobacco Use Smoking Status *Q: Current Every Day Smoker Years of Tobacco use: 30 Packs/Tins Daily: 1 Second Hand Smoke Exposure: No - Caffeine Use Caffeine Use: Reports: Soda Other Caffeine Use: 4-6 cans a day - Recreational Drug Use Recreational Drug Use: No H&P Review of Systems - Review of Systems: Review Of Systems: See Below (Difficult to obtain due to patient sedation and inconsistent answers.) General: Reports: Chills, Malaise, Weakness, Fatigue, Weight Loss HEENT: Reports: Other (chronic vision loss.) Pulmonary: Reports: No Symptoms Cardiovascular: Reports: No Symptoms Gastrointestinal: Reports: Abdominal Pain, Anorexia, Nausea, Vomiting Genitourinary: Reports: No Symptoms Musculoskeletal: Reports: Other (No new sxs, chronic pain.) Skin: Reports: No Symptoms Psychiatric: Reports: Other (See HPI. No current new complaints.) Exam - Exam Exam: See Below - Vital Signs Vital Signs: Last Vital Signs Temp 36.8 C 12/06/17 04:01 Pulse 98 12/06/17 04:01 Resp 18 12/06/17 04:01 BP 154/81 H 12/06/17 04:01 Pulse Ox 91 L 12/06/17 04:01 Weight: 85.23 kg - Exam General: Cooperative, Sedated (rousable, somewhat groggy and struggles to answer questions, saying "I can't think." ) HEENT: PERRLA, EOMI, Mucosa Moist & [place], Pupils Equal Neck: Supple Lungs: Clear to Auscultation, Normal Respiratory Effort Cardiovascular: Regular Rate, Regular Rhythm GI/Abdominal Exam: Distended, Tender, Abnormal Bowel Sounds (hyperactive bowel sounds. Diffusely tender and distended, but no guarding or rigidity.) Back Exam: Normal Inspection Extremities: No Pedal Edema Skin: Warm, Dry, Intact - Patient Data Lab Results Last 24 hrs: Laboratory Results - last 24 hr 12/05/17 12/05/17 12/05/17 Range/Units 23:50 23:50 23:50 WBC 13.1 H (4.5-12.0) X10-3/uL RBC 4.99 (3.23-5.20) x10(6)uL Hgb 13.7 (11.5-15.5) g/dL Hct 43.2 (30.0-51.3) % MCV 86.6 (80-96) fL MCH 27.4 L (27.7-33.6) pg MCHC 31.6 L (32.2-35.4) g/dL RDW 18.2 H (11.5-15.5) % Plt Count 556 H (125-369) X10(3)uL MPV 6.9 L (7.4-10.4) fL Neut % (Auto) 80.8 (46-82) % Lymph % (Auto) 11.3 L (13-37) % [place] % (Auto) 7.2 (4-12) % Eos % (Auto) 0 L (1.0-5.0) % Baso % (Auto) 0 (0-2) % Neut # (Auto) 10.6 H (1.6-8.3) # Lymph # (Auto) 1.5 (0.6-5.0) # Greenlee # (Auto) 0.9 (0.0-1.3) # Eos # (Auto) 0.0 (0.0-0.8) # Baso # (Auto) 0.1 (0.0-0.2) # Add Manual Diff Neutrophils % (Manual) (46-82) % Band Neutrophils % (0-6) % Lymphocytes % (Manual) (13-37) % Monocytes % (Manual) (4-12) % Eosinophils % (Manual) (0-5) % Anisocytosis Sodium (135-145) mmol/L Potassium (3.5-5.3) mmol/L Chloride (100-110) mmol/L Carbon Dioxide (21-32) mmol/L BUN (7-18) mg/dL Creatinine (0.55-1.02) mg/dL Est Cr Clr Drug Dosing Estimated GFR (MDRD) (>60) BUN/Creatinine Ratio (9-20) Glucose (80-116) mg/dL Lactic Acid 1.9 (0.4-2.2) mmol/L Calcium (8.6-10.2) mg/dL Total Bilirubin (0.1-1.3) mg/dL AST (5-25) IU/L ALT (12-36) U/L Alkaline Phosphatase (56-112) IU/L Troponin I < 0.017 L (<0.017-0.056) ng/mL Total Protein (6.0-8.0) g/dL Albumin (3.2-4.6) g/dL Globulin g/dL Albumin/Globulin Ratio TSH, Ultra Sensitive (0.36-3.74) IU/mL Urine Color (YELLOW) Urine Appearance (CLEAR) Urine pH (5.0-6.5) Ur Specific [place] (1.010-1.025) Urine Protein (NEGATIVE) mg/dL Urine Glucose (UA) (NEGATIVE) mg/dL Urine Ketones (NEGATIVE) mg/dL Urine Occult Blood (NEGATIVE) Urine Nitrite (NEGATIVE) Urine Bilirubin (NEGATIVE) Urine Urobilinogen (NEGATIVE) mg/dL Ur Leukocyte Esterase (NEGATIVE) Urine RBC (0) Urine WBC (0) Ur Squamous Epith Cells (NS,R,O) Urine Bacteria (NS) 12/05/17 12/05/17 12/06/17 Range/Units 23:50 23:50 01:10 WBC (4.5-12.0) X10-3/uL RBC (3.23-5.20) x10(6)uL Hgb (11.5-15.5) g/dL Hct (30.0-51.3) % MCV (80-96) fL MCH (27.7-33.6) pg MCHC (32.2-35.4) g/dL RDW (11.5-15.5) % Plt Count (125-369) X10(3)uL MPV (7.4-10.4) fL Neut % (Auto) (46-82) % Lymph % (Auto) (13-37) % [place]lee % (Auto) (4-12) % Eos % (Auto) (1.0-5.0) % Baso % (Auto) (0-2) % Neut # (Auto) (1.6-8.3) # Lymph # (Auto) (0.6-5.0) # Greenlee # (Auto) (0.0-1.3) # Eos # (Auto) (0.0-0.8) # Baso # (Auto) (0.0-0.2) # Add Manual Diff Neutrophils % (Manual) (46-82) % Band Neutrophils % (0-6) % Lymphocytes % (Manual) (13-37) % Monocytes % (Manual) (4-12) % Eosinophils % (Manual) (0-5) % Anisocytosis Sodium 139 (135-145) mmol/L Potassium 3.5 (3.5-5.3) mmol/L Chloride 102 (100-110) mmol/L Carbon Dioxide 22 (21-32) mmol/L BUN 12 (7-18) mg/dL Creatinine 0.8 (0.55-1.02) mg/dL Est Cr Clr Drug Dosing TNP Estimated GFR (MDRD) > 60 (>60) BUN/Creatinine Ratio 15.0 (9-20) Glucose 155 H (80-116) mg/dL Lactic Acid (0.4-2.2) mmol/L Calcium 9.9 (8.6-10.2) mg/dL Total Bilirubin 0.5 (0.1-1.3) mg/dL AST 32 H (5-25) IU/L ALT 90 H (12-36) U/L Alkaline Phosphatase 103 (56-112) IU/L Troponin I (<0.017-0.056) ng/mL Total Protein 8.0 (6.0-8.0) g/dL Albumin 3.7 (3.2-4.6) g/dL Globulin 4.3 g/dL Albumin/Globulin Ratio 0.9 TSH, Ultra Sensitive 1.90 (0.36-3.74) IU/mL Urine Color Yellow (YELLOW) Urine Appearance Slightly cloudy (CLEAR) Urine pH 7.0 H (5.0-6.5) Ur Specific [place] 1.005 L (1.010-1.025) Urine Protein Negative (NEGATIVE) mg/dL Urine Glucose (UA) >1000 H (NEGATIVE) mg/dL Urine Ketones Negative (NEGATIVE) mg/dL Urine Occult Blood Moderate H (NEGATIVE) Urine Nitrite Positive H (NEGATIVE) Urine Bilirubin Negative (NEGATIVE) Urine Urobilinogen Normal (NEGATIVE) mg/dL Ur Leukocyte Esterase Negative (NEGATIVE) Urine RBC 5-10 (0) Urine WBC 0-5 (0) Ur Squamous Epith Cells Few H (NS,R,O) Urine Bacteria Moderate H (NS) 12/06/17 12/06/17 Range/Units 06:50 06:50 WBC 14.2 H (4.5-12.0) X10-3/uL RBC 4.88 (3.23-5.20) x10(6)uL Hgb 13.7 (11.5-15.5) g/dL Hct 42.8 (30.0-51.3) % MCV 87.6 (80-96) fL MCH 27.9 (27.7-33.6) pg MCHC 31.9 L (32.2-35.4) g/dL RDW 18.1 H (11.5-15.5) % Plt Count 572 H (125-369) X10(3)uL MPV 6.9 L (7.4-10.4) fL Neut % (Auto) (46-82) % Lymph % (Auto) (13-37) % [place] % (Auto) (4-12) % Eos % (Auto) (1.0-5.0) % Baso % (Auto) (0-2) % Neut # (Auto) (1.6-8.3) # Lymph # (Auto) (0.6-5.0) # [place]lee # (Auto) (0.0-1.3) # Eos # (Auto) (0.0-0.8) # Baso # (Auto) (0.0-0.2) # Add Manual Diff Yes Neutrophils % (Manual) 87 H (46-82) % Band Neutrophils % 3 (0-6) % Lymphocytes % (Manual) 5 L (13-37) % Monocytes % (Manual) 4 (4-12) % Eosinophils % (Manual) 1 (0-5) % Anisocytosis Moderate H Sodium (135-145) mmol/L Potassium (3.5-5.3) mmol/L Chloride (100-110) mmol/L Carbon Dioxide (21-32) mmol/L BUN (7-18) mg/dL Creatinine (0.55-1.02) mg/dL Est Cr Clr Drug Dosing Estimated GFR (MDRD) (>60) BUN/Creatinine Ratio (9-20) Glucose (80-116) mg/dL Lactic Acid (0.4-2.2) mmol/L Calcium (8.6-10.2) mg/dL Total Bilirubin (0.1-1.3) mg/dL AST (5-25) IU/L ALT (12-36) U/L Alkaline Phosphatase (56-112) IU/L Troponin I < 0.017 L (<0.017-0.056) ng/mL Total Protein (6.0-8.0) g/dL Albumin (3.2-4.6) g/dL Globulin g/dL Albumin/Globulin Ratio TSH, Ultra Sensitive (0.36-3.74) IU/mL Urine Color (YELLOW) Urine Appearance (CLEAR) Urine pH (5.0-6.5) Ur Specific [place] (1.010-1.025) Urine Protein (NEGATIVE) mg/dL Urine Glucose (UA) (NEGATIVE) mg/dL Urine Ketones (NEGATIVE) mg/dL Urine Occult Blood (NEGATIVE) Urine Nitrite (NEGATIVE) Urine Bilirubin (NEGATIVE) Urine Urobilinogen (NEGATIVE) mg/dL Ur Leukocyte Esterase (NEGATIVE) Urine RBC (0) Urine WBC (0) Ur Squamous Epith Cells (NS,R,O) Urine Bacteria (NS) Result Diagrams: 12/06/17 06:50 12/05/17 23:50 - Problem List (1) SBO (small bowel obstruction) SNOMED Code(s): 644445094 ICD Code: K56.609 - UNSP INTESTNL OBST, UNSP TO PARTIAL VERSUS COMPLETE OBST Status: Acute Current Visit: Yes Problem Details: CT scan shows moderate dilatation of the mid small bowel with prominent in the central upper Pelvis in the area of an anastomotic michael. Given the patient's immunosuppression, recent episode of similar symptoms in November and now 5 days of symptoms at this point, I did ask Dr. Montgomery to see the patient in consultation for management of her small bowel obstruction. NG was placed for gastric decompression. IV PPI therapy ordered. Fentanyl for pain. Because of the patient's obesity and high risk medications being given here in the hospital , I'm going to ask that she be on continuous oximetry. (2) DM2 (diabetes mellitus, type 2) SNOMED Code(s): 68198606 ICD Code: E11.9 - TYPE 2 DIABETES MELLITUS WITHOUT COMPLICATIONS Status: Acute Current Visit: Yes Problem Details: Previously well-controlled, with increase in prednisone the patient's control has become more poor recently. Because she'll be nothing by mouth here in the hospital, we will do sliding scale insulin and 4 times a day glucometer checks. (3) Steroid dependence SNOMED Code(s): 57823894 ICD Code: [id number] - Status: Acute Current Visit: Yes Problem Details: Patient is at risk for both flare of her optic neuritis and also adrenal insufficiency. I'm going to do IV hydrocortisone 25 mg every 8 hours and monitor closely. (4) Restless leg syndrome SNOMED Code(s): 83641818 ICD Code: G25.81 - RESTLESS LEGS SYNDROME Status: Acute Current Visit: Yes Problem Details: IV Ativan when necessary until the patient is able to take Mirapex again. (5) History of psychiatric disorder SNOMED Code(s): 755884398 ICD Code: Z86.59 - PERSONAL HISTORY OF OTHER MENTAL AND BEHAVIORAL DISORDERS Status: Acute Current Visit: Yes Problem Details: We'll try to give the patient's Seroquel this evening by clamping the NG. Also her Lexapro. Will have fentanyl and Ativan available IV for withdrawal symptoms, pain, and agitation. (6) Hypertension SNOMED Code(s): 75494974 ICD Code: I10 - ESSENTIAL (PRIMARY) HYPERTENSION Status: Acute Current Visit: Yes Problem Details: We will use IV beta vishnu therapy and titrated as needed. Qualifiers: Hypertension type: essential hypertension Qualified Code(s): I10 - Essential (primary) hypertension (7) DVT prophylaxis SNOMED Code(s): 702358306, 081713592 ICD Code: [id number] - Status: Acute Current Visit: Yes Problem Details: Lovenox, SCDs. Problem List Initiated/Reviewed/Updated: Yes Orders Last 24hrs: Active Orders 24 hr Category Date Time Status Patient Status [ADT] Routine ADT 12/06/17 03:42 Active Influenza Vaccine Charge [RC] .DISCHARGE Care 12/06/17 04:11 Active Notify Provider Consults [RC] ASDIRECTED Care 12/06/17 08:28 Ordered Notify Provider Vital Signs [RC] ASDIRECTED Care 12/06/17 03:45 Active Overnight Pulse Oximetry [RC] Click to Edit Care 12/06/17 09:21 Ordered Oxygen Therapy [RC] PRN Care 12/06/17 03:42 Active POC Glucose [Blood Glucose Check, Bedside] [RC] Care 12/06/17 09:17 Ordered QIDACANDBED Up ad Maylin [RC] 09,13,17,21 Care 12/06/17 03:42 Active Vital Signs [RC] 04,08,12,16,20,00 Care 12/06/17 03:42 Active Consult to Physician [CONS] Routine Cons 12/06/17 08:27 Ordered Full Liquid Diet [DIET] Diet 12/06/17 Breakfast Active Abdomen Pelvis w Cont [CT] Stat Exams 12/05/17 23:35 Taken NG Tube Placement [CR] Routine Exams 12/06/17 08:45 Ordered Acetaminophen [Tylenol] Med 12/06/17 03:54 Active 650 mg PO Q4H PRN Bisacodyl [Dulcolax] Med 12/06/17 03:54 Active 5 mg PO DAILY PRN Cholecalciferol (Vitamin D3) [Vitamin D3] Med 12/06/17 09:00 Ordered 1,000 units PO DAILY Enoxaparin [Lovenox] Med 12/06/17 09:00 Active 40 mg SUBCUT DAILY Escitalopram [Lexapro] Med 12/06/17 21:00 Ordered 10 mg PO BEDTIME HYDROmorphone [Dilaudid] Med 12/06/17 03:42 Active 0.5 mg IVPUSH Q2H PRN Hydrocortisone Sod Succinate [Solu-CORTEF] Med 12/06/17 09:30 Ordered 25 mg IVPUSH Q8H Insulin Lispro [HumaLOG] Med 12/06/17 12:00 Ordered See Protocol SUBCUT TIDMEALS LORazepam [Ativan] Med 12/06/17 09:20 Ordered 1 mg IVPUSH Q8H PRN Lactated Ringers [Ringers, Lactated] 1,000 ml Med 12/06/17 03:45 Active IV ASDIRECTED Metoprolol Tartrate [Lopressor] Med 12/06/17 09:30 Ordered 2.5 mg IVPUSH Q4H Ondansetron [Zofran ODT] Med 12/06/17 03:54 Active 4 mg PO Q4H PRN Ondansetron [Zofran] Med 12/06/17 03:42 Active 4 mg IV Q4H PRN Pantoprazole [ProTONIX IV] Med 12/06/17 09:30 Ordered 40 mg IVPUSH Q24H QUEtiapine [SEROquel] Med 12/06/17 21:00 Ordered 400 mg PO BEDTIME Sodium Chloride 0.9% [Normal Saline] 1,000 ml Med 12/06/17 00:55 Active IV ASDIRECTED Travoprost [Travatan Z 0.004% Ophth Soln] Med 12/06/17 21:00 Ordered 1 drop EYERT BEDTIME amLODIPine [Norvasc] Med 12/06/17 09:00 Pending 10 mg PO DAILY fentaNYL [Sublimaze] Med 12/06/17 09:19 Ordered 100 mcg IVPUSH Q30M PRN Pulse Oximetry Continuous Monitoring [OM.PC] Routine Oth 12/06/17 09:21 Ordered Medication Orders Acetaminophen (Tylenol) 650 mg PO Q4H PRN PRN Reason: Pain (Mild 1-3)/fever Bisacodyl (Dulcolax) 5 mg PO DAILY PRN PRN Reason: Constipation Enoxaparin Sodium (Lovenox) 40 mg SUBCUT DAILY MAZIN Fentanyl (Sublimaze) 100 mcg IVPUSH Q30M PRN PRN Reason: Abdominal Pain Hydrocortisone Sodium Succinate (Solu-Cortef) 25 mg IVPUSH Q8H MAZIN Hydromorphone HCl (Dilaudid) 0.5 mg IVPUSH Q2H PRN PRN Reason: Pain (severe 7-10) Lactated Ringer's (Ringers, Lactated) 1,000 mls @ 125 mls/hr IV ASDIRECTED [facility] Sodium Chloride (Normal Saline) 1,000 mls @ 100 mls/hr IV ASDIRECTED MAZIN Last Admin: 12/06/17 08:51 Dose: 100 mls/hr Infusion: 12/06/17 08:51 Dose: 100 mls/hr Admin: 12/06/17 00:55 Dose: 100 mls/hr Insulin Human Lispro (Humalog) 0 unit SUBCUT TIDMEALS [facility]; Protocol Lorazepam (Ativan) 1 mg IVPUSH Q8H PRN PRN Reason: agitation, restless legs Metoprolol Tartrate (Lopressor) 2.5 mg IVPUSH Q4H MAZIN Non-Formulary Medication (Amlodipine [Norvasc]) 10 mg PO DAILY MAZIN Non-Formulary Medication (Cholecalciferol (Vitamin D3) [Vitamin D3]) 1,000 units PO DAILY MAZIN Non-Formulary Medication (Escitalopram [Lexapro]) 10 mg PO BEDTIME MAZIN Ondansetron HCl (Zofran) 4 mg IV Q4H PRN PRN Reason: Nausea/Vomiting Ondansetron HCl (Zofran Odt) 4 mg PO Q4H PRN PRN Reason: nausea, able to take PO Pantoprazole Sodium (Protonix Iv) 40 mg IVPUSH Q24H MAZIN Quetiapine Fumarate (Seroquel) 400 mg PO BEDTIME MAZIN Travoprost (Travatan Z 0.004% Ophth Soln) ml EYERT BEDTIME MAZIN Assessment/Plan Comment:: Due to patient's altered mental status, was not addressed with the patient. However on previous hospitalizations at [place], most recently 05/21/17, the patient was a full code.
[2017-12-06] MEDS ORDERED: NS + KCl 20mEq/L 1,000 ML IV SCH (09:45)
[2017-12-06] MEDS: HYDROmorphone 2 MG/ML SDV IVPUSH PRN ×2 (10:37→12:45)
[2017-12-06] MEDS: Metoprolol Tartrate 5 MG/5 ML SDV IVPUSH SCH ×2 (10:39→13:38)
[2017-12-06] MEDS ORDERED: Insulin Lispro 100 Unit/ML 3 ML KwikPen SUBCUT SCH (12:00)
[2017-12-06] MEDS ORDERED: Haloperidol Lactate 5 MG/ML SDV IM ONE (14:31)
--- NOTE | 2017-12-06 15:23 | PCM.DCSUM1 ---
Discharge Summary - Hospital Course Free Text/Narrative:: Date of admission: 12/06/2017 Date of transfer: 12/06/2017 Admission diagnosis: Small bowel obstruction Discharge diagnosis: Small bowel obstruction with significant mental illness with patient unable to take by mouth meds. Injectable antipsychotics not available. Patient pulled out NG. On immunosuppressants for optic neuritis. Consults: Dr. Montgomery General Surgery. He felt the patient's psychiatric illness and immunosuppression made her a poor candidate for keeping her at a critical access hospital and she was likely to exceed the 96 hours of care here. Procedures: NG placement, patient pulled out. CT abd/pelvis which showed a dilatation at the previous site of anastamosis of small bowel. HPI: Patient is a 62-year-old female with a very complex past medical history who presents with reported 5 days of abdominal pain, nausea, vomiting. She tells me she was in her usual state of good health up until 5 days ago when she started to develop gradually but rapidly progressive abdominal pain. She continued to attempt to eat but vomited up everything that she tried to eat. She had no fevers but did have chills and sweats. Pain continued to worsen until she finally presented to the emergency department the night prior to admission, was evaluated and found to have a possible small bowel obstruction. Was admitted for further treatment and monitoring. On admission white count was 13.1, electrolytes and chemistries were fairly unremarkable. She had mild elevation in her LFTs which is chronic for her. Urine was positive for nitrates glucose and blood but with regards to urine sxs patient was asymptomatic. Hx of SBO in past with surgical resection, recent clinic visit with similar sxs, which were milder and resolved spontaneously. Hospital course: Patient was somewhat agitated about being unable to take her PO meds. Was able to give most IV but our pharmacy does not carry any injectable antipyschotics other than Haldol. Patient was started on ativan for anxiety and fentanyl for pain. Continued to be confused but VS remained stable. She was voiding and NG had out about 4-500 ml before she pulled the tube out. She was then given 1 mg IM haldol with some improvement. Dr. Montgomery requested she be transferred to a higher level of care at that point as he felt she was inappropriate for our facility without psychiatric management, and particularly given her immunosuppression she would be better managed at a higher level facility. Patient accepted in transfer by Dr. Elias at [facility] at 1530. Will be transferred by [facility]. - Discharge Data Discharge Date: 12/06/17 Discharge Disposition: DC/Tfer to Acute Hospital 02 Condition: Good - Discharge Diagnosis/Problem(s) (1) SBO (small bowel obstruction) SNOMED Code(s): 551223961 ICD Code: K56.609 - UNSP INTESTNL OBST, UNSP TO PARTIAL VERSUS COMPLETE OBST Status: Acute Current Visit: Yes Problem Details: CT scan shows moderate dilatation of the mid small bowel with prominent in the central upper Pelvis in the area of an anastomotic michael. Given the patient's immunosuppression, recent episode of similar symptoms in November and now 5 days of symptoms at this point, I did ask Dr. Montgomery to see the patient in consultation for management of her small bowel obstruction. NG was placed for gastric decompression. IV PPI therapy ordered. Fentanyl for pain. Because of the patient's obesity and high risk medications being given here in the hospital , she was kept on continuous oximetry. NG pulled out by patient. Ulises recommended higher level of care for the patient given immunosuppression and psychiatric history which is quite complex. (2) DM2 (diabetes mellitus, type 2) SNOMED Code(s): 16400793 ICD Code: E11.9 - TYPE 2 DIABETES MELLITUS WITHOUT COMPLICATIONS Status: Acute Current Visit: Yes Problem Details: Previously well-controlled, with increase in prednisone the patient's control poorer. Sliding scale insulin and 4 times a day glucometer checks. (3) Steroid dependence SNOMED Code(s): 83098565 ICD Code: [id number] - Status: Acute Current Visit: Yes Problem Details: IV hydrocortisone 25 mg every 8 hours and monitor closely. (4) Restless leg syndrome SNOMED Code(s): 00291428 ICD Code: G25.81 - RESTLESS LEGS SYNDROME Status: Acute Current Visit: Yes Problem Details: IV Ativan when necessary until the patient is able to take Mirapex again. (5) History of psychiatric disorder SNOMED Code(s): 885088087 ICD Code: Z86.59 - PERSONAL HISTORY OF OTHER MENTAL AND BEHAVIORAL DISORDERS Status: Acute Current Visit: Yes Problem Details: We'll try to give the patient's Seroquel this evening by clamping the NG. Also her Lexapro. Will have fentanyl and Ativan available IV for withdrawal symptoms, pain, and agitation. (6) Hypertension SNOMED Code(s): 05687579 ICD Code: I10 - ESSENTIAL (PRIMARY) HYPERTENSION Status: Acute Current Visit: Yes Problem Details: We will use IV beta vishnu therapy and titrated as needed. Qualifiers: Hypertension type: essential hypertension Qualified Code(s): I10 - Essential (primary) hypertension (7) DVT prophylaxis SNOMED Code(s): 223560143, 312491095 ICD Code: AJA1749 - Status: Acute Current Visit: Yes Problem Details: Lovenox, SCDs. - Patient Summary/Data Consults: Consultations 12/06/17 08:27 Consult to Physician [CONS] Routine Consulting Provider: Gustavo Montgomery Call Completed to Consulting Physician: Yes Reason for Consult: SBO Person Notified: Ulises Date Notified: 12/06/17 Time Notified: 08:29 - Discharge Plan *PRESCRIPTION DRUG MONITORING PROGRAM REVIEWED*: No *COPY OF PRESCRIPTION DRUG MONITORING REPORT IN PATIENT JAXON: No Home Medications: Home Meds QUEtiapine [SEROquel] 400 mg PO BEDTIME 10/11/16 [History] amLODIPine [Norvasc] 10 mg PO DAILY 10/11/16 [History] Aspirin [Halfprin] 81 mg PO DAILY 12/06/17 [History] Cholecalciferol (Vitamin D3) [Vitamin D3] 1,000 units PO DAILY 12/06/17 [History ] Escitalopram [Lexapro] 10 mg PO BEDTIME 12/06/17 [History] Glimepiride [Amaryl] 1 mg PO WITHDINNER 12/06/17 [History] Glimepiride [Amaryl] 2 mg PO WITHBREAKFAST 12/06/17 [History] Insulin Aspart [NovoLOG] 5 units SUBCUT TIDMEALS 12/06/17 [History] Insulin Degludec [Tresiba Flextouch U-100] 20 units SUBCUT BEDTIME 12/06/17 [ History] Lactulose 30 ml PO BID 12/06/17 [History] Metoprolol Succinate [Toprol XL] 25 mg PO DAILY 12/06/17 [History] Omeprazole 40 mg PO DAILY 12/06/17 [History] Pramipexole [Mirapex] 0.75 mg PO BEDTIME 12/06/17 [History] Travoprost [Travatan Z] 1 drop EYERT BEDTIME 12/06/17 [History] azaTHIOprine [Imuran] 200 mg PO DAILY 12/06/17 [History] hydrOXYzine pamoate [Vistaril] 25 mg PO BID PRN 12/06/17 [History] metFORMIN [Glucophage] 1,000 mg PO BIDMEALS 12/06/17 [History] predniSONE [Prednisone] 10 mg PO DAILY 12/06/17 [History] Forms: ED Department Discharge Referrals: Ann Chamberlain [employer] INVESTIGATOR [Primary Care Provider] - - Discharge Summary/Plan Comment DC Time >30 min.: Yes - General Info Date of Service: 12/06/17 - Patient Data Vitals - Most Recent: Last Vital Signs Temp 36.6 C 12/06/17 12:45 Pulse 102 H 12/06/17 13:38 Resp 20 12/06/17 12:45 BP 124/55 L 12/06/17 13:38 Pulse Ox 92 L 12/06/17 12:45 Weight - Most Recent: 85.23 kg I&O - Last 24 hours: Intake & Output 12/06/17 12/06/17 12/06/17 06:59 14:59 22:59 Output Total 1500 Balance -1500 Lab Results - Last 24 hrs: Laboratory Results - last 24 hr 12/05/17 12/05/17 12/05/17 Range/Units 23:50 23:50 23:50 WBC 13.1 H (4.5-12.0) X10-3/uL RBC 4.99 (3.23-5.20) x10(6)uL Hgb 13.7 (11.5-15.5) g/dL Hct 43.2 (30.0-51.3) % MCV 86.6 (80-96) fL MCH 27.4 L (27.7-33.6) pg MCHC 31.6 L (32.2-35.4) g/dL RDW 18.2 H (11.5-15.5) % Plt Count 556 H (125-369) X10(3)uL MPV 6.9 L (7.4-10.4) fL Neut % (Auto) 80.8 (46-82) % Lymph % (Auto) 11.3 L (13-37) % Ida % (Auto) 7.2 (4-12) % Eos % (Auto) 0 L (1.0-5.0) % Baso % (Auto) 0 (0-2) % Neut # (Auto) 10.6 H (1.6-8.3) # Lymph # (Auto) 1.5 (0.6-5.0) # Ida # (Auto) 0.9 (0.0-1.3) # Eos # (Auto) 0.0 (0.0-0.8) # Baso # (Auto) 0.1 (0.0-0.2) # Add Manual Diff Neutrophils % (Manual) (46-82) % Band Neutrophils % (0-6) % Lymphocytes % (Manual) (13-37) % Monocytes % (Manual) (4-12) % Eosinophils % (Manual) (0-5) % Anisocytosis Sodium (135-145) mmol/L Potassium (3.5-5.3) mmol/L Chloride (100-110) mmol/L Carbon Dioxide (21-32) mmol/L BUN (7-18) mg/dL Creatinine (0.55-1.02) mg/dL Est Cr Clr Drug Dosing Estimated GFR (MDRD) (>60) BUN/Creatinine Ratio (9-20) Glucose (80-116) mg/dL Lactic Acid 1.9 (0.4-2.2) mmol/L Calcium (8.6-10.2) mg/dL Total Bilirubin (0.1-1.3) mg/dL AST (5-25) IU/L ALT (12-36) U/L Alkaline Phosphatase (56-112) IU/L Troponin I < 0.017 L (<0.017-0.056) ng/mL Total Protein (6.0-8.0) g/dL Albumin (3.2-4.6) g/dL Globulin g/dL Albumin/Globulin Ratio TSH, Ultra Sensitive (0.36-3.74) IU/mL Urine Color (YELLOW) Urine Appearance (CLEAR) Urine pH (5.0-6.5) Ur Specific [place] (1.010-1.025) Urine Protein (NEGATIVE) mg/dL Urine Glucose (UA) (NEGATIVE) mg/dL Urine Ketones (NEGATIVE) mg/dL Urine Occult Blood (NEGATIVE) Urine Nitrite (NEGATIVE) Urine Bilirubin (NEGATIVE) Urine Urobilinogen (NEGATIVE) mg/dL Ur Leukocyte Esterase (NEGATIVE) Urine RBC (0) Urine WBC (0) Ur Squamous Epith Cells (NS,R,O) Urine Bacteria (NS) 12/05/17 12/05/17 12/06/17 Range/Units 23:50 23:50 01:10 WBC (4.5-12.0) X10-3/uL RBC (3.23-5.20) x10(6)uL Hgb (11.5-15.5) g/dL Hct (30.0-51.3) % MCV (80-96) fL MCH (27.7-33.6) pg MCHC (32.2-35.4) g/dL RDW (11.5-15.5) % Plt Count (125-369) X10(3)uL MPV (7.4-10.4) fL Neut % (Auto) (46-82) % Lymph % (Auto) (13-37) % Ida % (Auto) (4-12) % Eos % (Auto) (1.0-5.0) % Baso % (Auto) (0-2) % Neut # (Auto) (1.6-8.3) # Lymph # (Auto) (0.6-5.0) # Ida # (Auto) (0.0-1.3) # Eos # (Auto) (0.0-0.8) # Baso # (Auto) (0.0-0.2) # Add Manual Diff Neutrophils % (Manual) (46-82) % Band Neutrophils % (0-6) % Lymphocytes % (Manual) (13-37) % Monocytes % (Manual) (4-12) % Eosinophils % (Manual) (0-5) % Anisocytosis Sodium 139 (135-145) mmol/L Potassium 3.5 (3.5-5.3) mmol/L Chloride 102 (100-110) mmol/L Carbon Dioxide 22 (21-32) mmol/L BUN 12 (7-18) mg/dL Creatinine 0.8 (0.55-1.02) mg/dL Est Cr Clr Drug Dosing TNP Estimated GFR (MDRD) > 60 (>60) BUN/Creatinine Ratio 15.0 (9-20) Glucose 155 H (80-116) mg/dL Lactic Acid (0.4-2.2) mmol/L Calcium 9.9 (8.6-10.2) mg/dL Total Bilirubin 0.5 (0.1-1.3) mg/dL AST 32 H (5-25) IU/L ALT 90 H (12-36) U/L Alkaline Phosphatase 103 (56-112) IU/L Troponin I (<0.017-0.056) ng/mL Total Protein 8.0 (6.0-8.0) g/dL Albumin 3.7 (3.2-4.6) g/dL Globulin 4.3 g/dL Albumin/Globulin Ratio 0.9 TSH, Ultra Sensitive 1.90 (0.36-3.74) IU/mL Urine Color Yellow (YELLOW) Urine Appearance Slightly cloudy (CLEAR) Urine pH 7.0 H (5.0-6.5) Ur Specific [place] 1.005 L (1.010-1.025) Urine Protein Negative (NEGATIVE) mg/dL Urine Glucose (UA) >1000 H (NEGATIVE) mg/dL Urine Ketones Negative (NEGATIVE) mg/dL Urine Occult Blood Moderate H (NEGATIVE) Urine Nitrite Positive H (NEGATIVE) Urine Bilirubin Negative (NEGATIVE) Urine Urobilinogen Normal (NEGATIVE) mg/dL Ur Leukocyte Esterase Negative (NEGATIVE) Urine RBC 5-10 (0) Urine WBC 0-5 (0) Ur Squamous Epith Cells Few H (NS,R,O) Urine Bacteria Moderate H (NS) 12/06/17 12/06/17 Range/Units 06:50 06:50 WBC 14.2 H (4.5-12.0) X10-3/uL RBC 4.88 (3.23-5.20) x10(6)uL Hgb 13.7 (11.5-15.5) g/dL Hct 42.8 (30.0-51.3) % MCV 87.6 (80-96) fL MCH 27.9 (27.7-33.6) pg MCHC 31.9 L (32.2-35.4) g/dL RDW 18.1 H (11.5-15.5) % Plt Count 572 H (125-369) X10(3)uL MPV 6.9 L (7.4-10.4) fL Neut % (Auto) (46-82) % Lymph % (Auto) (13-37) % Ida % (Auto) (4-12) % Eos % (Auto) (1.0-5.0) % Baso % (Auto) (0-2) % Neut # (Auto) (1.6-8.3) # Lymph # (Auto) (0.6-5.0) # Ida # (Auto) (0.0-1.3) # Eos # (Auto) (0.0-0.8) # Baso # (Auto) (0.0-0.2) # Add Manual Diff Yes Neutrophils % (Manual) 87 H (46-82) % Band Neutrophils % 3 (0-6) % Lymphocytes % (Manual) 5 L (13-37) % Monocytes % (Manual) 4 (4-12) % Eosinophils % (Manual) 1 (0-5) % Anisocytosis Moderate H Sodium (135-145) mmol/L Potassium (3.5-5.3) mmol/L Chloride (100-110) mmol/L Carbon Dioxide (21-32) mmol/L BUN (7-18) mg/dL Creatinine (0.55-1.02) mg/dL Est Cr Clr Drug Dosing Estimated GFR (MDRD) (>60) BUN/Creatinine Ratio (9-20) Glucose (80-116) mg/dL Lactic Acid (0.4-2.2) mmol/L Calcium (8.6-10.2) mg/dL Total Bilirubin (0.1-1.3) mg/dL AST (5-25) IU/L ALT (12-36) U/L Alkaline Phosphatase (56-112) IU/L Troponin I < 0.017 L (<0.017-0.056) ng/mL Total Protein (6.0-8.0) g/dL Albumin (3.2-4.6) g/dL Globulin g/dL Albumin/Globulin Ratio TSH, Ultra Sensitive (0.36-3.74) IU/mL Urine Color (YELLOW) Urine Appearance (CLEAR) Urine pH (5.0-6.5) Ur Specific [place] (1.010-1.025) Urine Protein (NEGATIVE) mg/dL Urine Glucose (UA) (NEGATIVE) mg/dL Urine Ketones (NEGATIVE) mg/dL Urine Occult Blood (NEGATIVE) Urine Nitrite (NEGATIVE) Urine Bilirubin (NEGATIVE) Urine Urobilinogen (NEGATIVE) mg/dL Ur Leukocyte Esterase (NEGATIVE) Urine RBC (0) Urine WBC (0) Ur Squamous Epith Cells (NS,R,O) Urine Bacteria (NS) Med Orders - Current: Current Medications Acetaminophen (Tylenol) 650 mg PO Q4H PRN PRN Reason: Pain (Mild 1-3)/fever Bisacodyl (Dulcolax) 5 mg PO DAILY PRN PRN Reason: Constipation Enoxaparin Sodium (Lovenox) 40 mg SUBCUT DAILY [facility] Last Admin: 12/06/17 10:35 Dose: 40 mg Escitalopram Oxalate (Lexapro) 10 mg PO BEDTIME MAZIN Fentanyl (Sublimaze) 100 mcg IVPUSH Q30M PRN PRN Reason: Abdominal Pain Hydrocortisone Sodium Succinate (Solu-Cortef) 25 mg IVPUSH Q8H [facility] Last Admin: 12/06/17 10:41 Dose: 25 mg Hydromorphone HCl (Dilaudid) 0.5 mg IVPUSH Q2H PRN PRN Reason: Pain (severe 7-10) Last Admin: 12/06/17 12:45 Dose: 0.5 mg Lactated Ringer's (Ringers, Lactated) 1,000 mls @ 125 mls/hr IV ASDIRECTED MAZIN Sodium Chloride (Normal Saline) 1,000 mls @ 100 mls/hr IV ASDIRECTED MAZIN Last Admin: 12/06/17 08:51 Dose: 100 mls/hr Potassium Chloride/Sodium Chloride (Normal Saline With 20 Meq Kcl) 1,000 mls @ 125 mls/hr IV Q8H MAZIN Last Admin: 12/06/17 10:33 Dose: 125 mls/hr Insulin Human Lispro (Humalog) 0 unit SUBCUT TIDMEALS [facility]; Protocol Last Admin: 12/06/17 11:10 Dose: Not Given Latanoprost (Xalatan 0.005% Ophth Soln) 0 ml EYERT BEDTIME MAZIN Lorazepam (Ativan) 1 mg IVPUSH Q8H PRN PRN Reason: agitation, restless legs Last Admin: 12/06/17 10:36 Dose: 1 mg Metoprolol Tartrate (Lopressor) 2.5 mg IVPUSH Q4H [facility] Last Admin: 12/06/17 13:38 Dose: 2.5 mg Ondansetron HCl (Zofran) 4 mg IV Q4H PRN PRN Reason: Nausea/Vomiting Ondansetron HCl (Zofran Odt) 4 mg PO Q4H PRN PRN Reason: nausea, able to take PO Pantoprazole Sodium (Protonix Iv) 40 mg IVPUSH Q24H [facility] Last Admin: 12/06/17 10:45 Dose: 40 mg Quetiapine Fumarate (Seroquel) 400 mg PO BEDTIME MAZIN Discontinued Medications Fentanyl (Sublimaze) 100 mcg IVPUSH ONETIME ONE Stop: 12/05/17 23:34 Last Admin: 12/05/17 23:51 Dose: 100 mcg Fentanyl (Sublimaze) 100 mcg IVPUSH ONETIME ONE Stop: 12/06/17 01:04 Last Admin: 12/06/17 01:10 Dose: 100 mcg Haloperidol Lactate (Haldol) 1 mg IM ONETIME ONE Stop: 12/06/17 14:32 Last Admin: 12/06/17 14:43 Dose: 1 mg Hydromorphone HCl (Dilaudid) 1 mg IVPUSH ONETIME ONE Stop: 12/06/17 03:17 Last Admin: 12/06/17 03:20 Dose: 1 mg Hydromorphone HCl (Dilaudid) Confirm Administered Dose 2 mg .ROUTE .STK-MED ONE Stop: 12/06/17 03:22 Last Admin: 12/06/17 09:48 Dose: Not Given Sodium Chloride (Normal Saline) 1,000 mls @ 999 mls/hr IV .BOLUS ONE Stop: 12/06/17 00:32 Last Admin: 12/06/17 03:31 Dose: 999 mls/hr Influenza Virus Vaccine (Pharmacy To Dose - Influenza Vaccine) 1 each IM ONETIME ONE Stop: 12/06/17 04:12 Iopamidol (Isovue-370 (76%)) 100 ml IV . DIRECTED ONE Stop: 12/06/17 00:11 Last Admin: 12/06/17 00:44 Dose: 100 ml Lidocaine HCl (Glydo) 6 ml MM ONETIME ONE Stop: 12/06/17 09:16 Last Admin: 12/06/17 09:11 Dose: 6 ml Lidocaine HCl (Glydo) Confirm Administered Dose 6 ml .ROUTE .STK-MED ONE Stop: 12/06/17 08:49 Last Admin: 12/06/17 09:12 Dose: Not Given Lidocaine HCl (Glydo) 6 ml MM ONETIME ONE Stop: 12/06/17 09:16 Last Admin: 12/06/17 09:12 Dose: Not Given Lorazepam (Ativan) Confirm Administered Dose 2 mg .ROUTE .STK-MED ONE Stop: 12/06/17 01:58 Last Admin: 12/06/17 08:38 Dose: Not Given Lorazepam (Ativan) 1 mg IVPUSH ONETIME ONE Stop: 12/06/17 01:51 Last Admin: 12/06/17 01:57 Dose: 1 mg Ondansetron HCl (Zofran) 4 mg IVPUSH ONETIME ONE Stop: 12/05/17 23:35 Last Admin: 12/05/17 23:51 Dose: 4 mg Comments:: See px from admission. Patient more confused but otherwise unchanged. Stomach less tender and less distended after NG decompression.
[2017-12-06 16:23] VITALS: BP 124/65
--- NOTE | 2017-12-06 16:26 | CONS ---
DATE OF CONSULTATION: 12/06/2017 HISTORY OF PRESENT ILLNESS: This 62-year-old female was admitted early this morning with symptoms of abdominal pain, nausea, and vomiting. She apparently has been having some degree of abdominal pain for about 5 days. The history is unclear as to how long she has been vomiting at home, but at least since yesterday. She states that she has not been having very much bowel function, but does think that she had a small bowel movement yesterday. Currently, she says that her abdominal pain has mainly been across the area of the mid abdomen near the level of the umbilicus and it extends on both the left and right sides, but not into her back. She has been able to void without pain. The patient's recent history is significant in that she was just discharged from a [facility] after a several-day hospital stay for similar abdominal symptoms. Evaluation since she has been at the hospital here includes laboratory studies, which do show mild elevated serum white blood cell count of 13,000 upon admission and 14,000 this morning. Hemoglobin is 13.7. There are 87% segs and 3% bands. Her chemistry studies are unremarkable with mild elevation of AST and ALT. Urinalysis does show a moderate amount of bacteria. She underwent a CT scan of the abdomen which did show some distended proximal small bowel tapering down to a normal caliber distal small bowel. There was no specific transition point, and the findings were felt to be most consistent with an ileus. The patient this morning did have an NG tube placed after an episode of vomiting, and she had approximately 400 mL out the NG tube, but then pulled the NG tube out herself. Re-evaluation several hours after the initial consult identifies that she is having less abdominal pain and currently does not have any nausea. PAST MEDICAL HISTORY: Notable for previous surgeries to include a partial small bowel resection apparently from obstruction secondary to adhesions. She states that she has had a previous hysterectomy, cholecystectomy, and appendectomy. Her past medical history is also significant for severe psychiatric disease. MEDICATIONS: 1. She is on multiple high-dose medications for psychiatric issues. 2. She also is on prednisone for an eye problem, currently taking 20 mg a day. FAMILY HISTORY: Noncontributory. PHYSICAL EXAMINATION: VITAL SIGNS: Currently shows a pulse of 102, blood pressure is 124/55, temperature is 97.9, weight is 187 pounds. GENERAL: The patient is an adult female. She is currently in no acute distress. It is reported by the staff, however, that she will frequently have periods of agitation and failure to cooperate with instructions secondary to her psychiatric issues. HEENT: Head is normocephalic. No scleral icterus. HEART: Regular. LUNGS: Clear. ABDOMEN: Does show mild distention, but her abdomen is currently soft. Earlier, she had tenderness in the upper and mid abdomen. Currently, her upper abdominal tenderness is now gone. She does have mild tenderness to direct palpation in the mid abdomen. I do not feel any guarding or mass. Surgical scars are well healed. No hernias are palpable. EXTREMITIES: No calf tenderness. IMPRESSION: 1. Ileus versus partial small bowel obstruction. 2. Major psychiatric disease. RECOMMENDATIONS: Would feel continued observation for her abdominal ileus is appropriate at this time with clinical improvement over the past few hours. The degree of her psychiatric disease is of concern, and there is a question of whether this will be able to be controlled appropriately in this facility. Discussion was carried out with the hospitalist helping to manage this patient, and there is consideration to transferring her to a tertiary care facility for better management of her psychiatric disease. I believe she is stable from a surgical standpoint for this transfer. /[id number] JOSETTE/TYLER
[2017-12-06] MEDS ORDERED: Latanoprost 0.005% Ophth Soln 2.5 ML Bottle EYERT SCH (21:00)
[2017-12-06] MEDS ORDERED: Escitalopram 10 MG Tab PO SCH (21:00)
[2017-12-06] MEDS ORDERED: QUEtiapine 100 MG Tab PO SCH (21:00)
== END 2017-12-06 16:05 | DRG 247 ==
LOC: FB.ED 22:39 → FB.MS 12-06 03:50 → OBSVTOIN 12-06 10:34
PROVIDERS: ADMIT Emergency Medicine; ATTEND Family Medicine
DX: K56.609 Unspecified intestinal obstruction, unspecified as to partial versus complete obstruction (principal); E11.9 Type 2 diabetes mellitus without complications; I10 Essential (primary) hypertension; M06.9 Rheumatoid arthritis, unspecified; H54.8 Legal blindness, as defined in USA; K21.9 Gastro-esophageal reflux disease without esophagitis; M19.90 Unspecified osteoarthritis, unspecified site; F60.3 Borderline personality disorder; F17.210 Nicotine dependence, cigarettes, uncomplicated; Z98.1 Arthrodesis status; F11.21 Opioid dependence, in remission; F34.1 Dysthymic disorder; F41.9 Anxiety disorder, unspecified; M79.7 Fibromyalgia; J45.909 Unspecified asthma, uncomplicated; E66.9 Obesity, unspecified; Z68.30 Body mass index [BMI] 30.0-30.9, adult; F19.20 Other psychoactive substance dependence, uncomplicated; G25.81 Restless legs syndrome; Z86.59 Personal history of other mental and behavioral disorders; Z79.82 Long term (current) use of aspirin; Z79.52 Long term (current) use of systemic steroids; Z88.8 Allergy status to other drugs, medicaments and biological substances; Z79.4 Long term (current) use of insulin
CPT/HCPCS: 36415; 43752; 74177; 80053; 81001; 82962; 83605; 84443; 84484; 85025; 93005; 96361; 96374; 96375; 96376; 99285; A9270-GY; C9113; J1170; J1630; J1650; J1720; J1815; J2060; J2405; J3010; J3480; J3490; J7030; Q9967

== ENCOUNTER 2018-10-13 14:18 | Inpatient (IN) | payer MEDICARE, BC ==
[2018-10-13] MEDS ORDERED: Sodium Chloride 0.9% 1,000 ML IV SCH (15:45)
--- NOTE | 2018-10-13 16:03 | EDM.PDOC ---
<Micki Fitzpatrick - Last Filed: 10/13/18 17:45> ED HPI GENERAL MEDICAL PROBLEM - General Chief Complaint: Abdominal Pain Stated Complaint: ABD PAIN Time Seen by Provider: 10/13/18 15:08 Source of Information: Reports: Patient, Old Records History Limitations: Reports: No Limitations - History of Present Illness INITIAL COMMENTS - FREE TEXT/NARRATIVE: patient is a pleasant 63-year-old female who presents today with concern for stomach pain for the past two weeks. [place] were [place] vacation at [place] so she didn't want to be evaluated. She notes severe diarrhea over that timeframe , last bowel movement was yesterday. She vomited a couple days ago but not today. Has not really eaten or drank anything today. Her diet has generally been of soup. She notes severe, cramping abdominal pain, worse after eating. Also has noted increased frequency and urgency of urination, and some back pain. She has not been on any antibiotic recently, she drinks only bottled water when at the cabin. No fevers, chills, sweats. No cough, shortness of breath, chest pain. history SBO managed conservatively last fall in [place]. history multiple abdominal surgeries, she thinks last one was 10 years ago. She has a past medical history of diabetes, last A1c approximately 6.9, on metformin, novolog TID, Bydureon doses , and . History also significant for optic neuritis and immunosuppressed on prednisone 15mg qd and max dose azathioprine. abd Pain Score (Numeric/FACES): 8 - Related Data Allergies Allergy/AdvReac Type Severity Reaction Status Date / Time divalproex sodium Allergy Itching Verified 12/06/17 01:45 [From Depakote] duloxetine [From Cymbalta] Allergy Rash Verified 12/06/17 01:45 erythromycin base Allergy Itching Verified 12/06/17 01:45 Home Meds: Home Meds QUEtiapine [SEROquel] 400 mg PO BEDTIME 10/11/16 [History] amLODIPine [Norvasc] 10 mg PO DAILY 10/11/16 [History] Aspirin [Halfprin] 81 mg PO DAILY 12/06/17 [History] Cholecalciferol (Vitamin D3) [Vitamin D3] 1,000 units PO DAILY 12/06/17 [History ] Escitalopram [Lexapro] 10 mg PO BEDTIME 12/06/17 [History] Glimepiride [Amaryl] 1 mg PO WITHDINNER 12/06/17 [History] Glimepiride [Amaryl] 2 mg PO WITHBREAKFAST 12/06/17 [History] Insulin Aspart [NovoLOG] 5 units SUBCUT TIDMEALS 12/06/17 [History] Insulin Degludec [Tresiba Flextouch U-100] 20 units SUBCUT BEDTIME 12/06/17 [ History] Lactulose 30 ml PO BID 12/06/17 [History] Metoprolol Succinate [Toprol XL] 25 mg PO DAILY 12/06/17 [History] Omeprazole 40 mg PO DAILY 12/06/17 [History] Pramipexole [Mirapex] 0.75 mg PO BEDTIME 12/06/17 [History] Travoprost [Travatan Z] 1 drop EYERT BEDTIME 12/06/17 [History] azaTHIOprine [Imuran] 200 mg PO DAILY 12/06/17 [History] hydrOXYzine pamoate [Vistaril] 25 mg PO BID PRN 12/06/17 [History] metFORMIN [Glucophage] 1,000 mg PO BIDMEALS 12/06/17 [History] predniSONE [Prednisone] 10 mg PO DAILY 12/06/17 [History] Past Medical History HEENT History: Reports: Impaired Vision, Other (See Below) Other HEENT History: pt legally blind Cardiovascular History: Reports: Hypertension Respiratory History: Reports: Asthma Gastrointestinal History: Reports: GERD, Other (See Below) Other Gastrointestinal History: snall bowel obstruction Genitourinary History: Reports: Renal Disease [employer]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: Musculoskeletal History: Reports: Arthritis Other Musculoskeletal History: n Neurological History: Reports: Other (See Below) Other Neuro History: encephalopathy Psychiatric History: Reports: Addiction, Other (See Below) Other Psychiatric History: personality disorder Endocrine/Metabolic History: Reports: Diabetes, Type II - Infectious Disease History Infectious Disease History: Reports: Chicken Pox Other Infectious Disease History: MSSA of right foot - Past Surgical History GI Surgical History: Reports: Colonoscopy Social & Family History - Family History Family Medical History: Noncontributory - Tobacco Use Smoking Status *Q: Current Every Day Smoker Years of Tobacco use: 40 Packs/Tins Daily: 2 - Caffeine Use Caffeine Use: Reports: Soda Other Caffeine Use: 4-6 cans a day - Alcohol Use Alcohol Use History: Yes Date/Time of Last Drink Comment: rare social beer - Recreational Drug Use Recreational Drug Use: No - Living Situation & Occupation Living situation: Reports: ED ROS GENERAL - Review of Systems Review Of Systems: ROS reveals no pertinent complaints other than HPI. ED EXAM, GENERAL - Physical Exam Exam: See Below Free Text/Narrative:: general: Alert, pleasant and does not appear acutely distressed. Throat is without erythema, mucous membranes moist. Head is atraumatic, neck is supple. Lungs clear throughout with no wheezes or crackles, heart regular. Abdomen very active bowel sounds, diffusely tender in epigastric area. No rebound or guarding Peripheral pulses are +2 in both the the upper and lower extremities. She has no lower extremity edema. Strength is equal bilaterally and her gait is normal. There are No obvious skin rashes or lesions. Psych - answers questions appropriately Course - Vital Signs Text/Narrative:: initial labs ordered. Fairly benign abdominal exam. significant immunosuppression. Differential - obstruction, gastroenteritis, viral unlikely with this timeframe. Possible c. diff, though no recent antibiotics. Given her appearance, seems unlikely to have significant abdominal infection, though possible with immunosupression. No appendix or gallbladder. Possible UTI, s/p hysterectomy. discussed with radiology regarding imaging - will start with plain film series Last Recorded V/S: Last Vital Signs Temp 36.4 C 10/13/18 19:41 Pulse 84 10/13/18 19:41 Resp 14 10/13/18 19:41 BP 156/76 H 10/13/18 19:41 Pulse Ox 95 10/13/18 19:41 - Orders/Labs/Meds Orders: Active Orders 24 hr Category Date Time Status Abdomen Pelvis w wo Cont [CT] Stat Exams 10/13/18 17:44 Taken Abdomen Series w Chest 1V [CR] Stat Exams 10/13/18 15:42 Taken CULTURE URINE [RM] Stat Lab 10/13/18 16:25 Received LIPASE, SERUM Stat Lab 10/13/18 16:25 Received Piperacillin/Tazobactam [Zosyn] 4.5 gm Med 10/13/18 16:45 Active Sodium Chloride 0.9% [Normal Saline] 100 ml IV Q6H Sodium Chloride 0.9% [Normal Saline] 1,000 ml Med 10/13/18 15:45 Active IV ASDIRECTED Medication Orders Sodium Chloride (Normal Saline) 1,000 mls @ 500 mls/hr IV ASDIRECTED MAZIN Last Admin: 10/13/18 15:50 Dose: 500 mls/hr Piperacillin Sod/Tazobactam (Sod 4.5 gm/ Sodium Chloride) 100 mls @ 200 mls/hr IV Q6H MAZIN Last Admin: 10/13/18 16:59 Dose: 200 mls/hr Labs: Laboratory Tests 10/13/18 10/13/18 10/13/18 Range/Units 15:00 15:00 15:00 WBC 9.6 (4.5-12.0) X10-3/uL RBC 4.00 (3.23-5.20) x10(6)uL Hgb 14.4 (11.5-15.5) g/dL Hct 42.7 (30.0-51.3) % MCV 106.6 H (80-96) fL MCH 35.9 H (27.7-33.6) pg MCHC 33.7 (32.2-35.4) g/dL RDW 20.0 H (11.5-15.5) % Plt Count 356 (125-369) X10(3)uL MPV 7.3 L (7.4-10.4) fL Neut % (Auto) 74.5 (46-82) % Lymph % (Auto) 16.1 (13-37) % [place] % (Auto) 6.9 (4-12) % Eos % (Auto) 1 (1.0-5.0) % Baso % (Auto) 2 (0-2) % Neut # (Auto) 7.0 (1.6-8.3) # Lymph # (Auto) 1.6 (0.6-5.0) # Barber # (Auto) 0.7 (0.0-1.3) # Eos # (Auto) 0.1 (0.0-0.8) # Baso # (Auto) 0.2 (0.0-0.2) # Sodium 139 (135-145) mmol/L Potassium 3.8 (3.5-5.3) mmol/L Chloride 102 (100-110) mmol/L Carbon Dioxide 25 (21-32) mmol/L BUN 12 (7-18) mg/dL Creatinine 0.6 (0.55-1.02) mg/dL Est Cr Clr Drug Dosing 83.95 mL/min Estimated GFR (MDRD) > 60 (>60) BUN/Creatinine Ratio 20.0 (9-20) Glucose 113 (80-116) mg/dL Lactic Acid 2.6 H (0.4-2.2) mmol/L Calcium 9.2 (8.6-10.2) mg/dL Total Bilirubin 1.4 H (0.1-1.3) mg/dL AST 57 H D (5-25) IU/L ALT 71 H D (12-36) U/L Alkaline Phosphatase 128 H (56-112) IU/L C-Reactive Protein (0.5-0.9) mg/dL Total Protein 6.5 (6.0-8.0) g/dL Albumin 3.1 L (3.2-4.6) g/dL Globulin 3.4 g/dL Albumin/Globulin Ratio 0.9 Urine Color (YELLOW) Urine Appearance (CLEAR) Urine pH (5.0-6.5) Ur Specific [place] (1.010-1.025) Urine Protein (NEGATIVE) mg/dL Urine Glucose (UA) (NORMAL) mg/dL Urine Ketones (NEGATIVE) mg/dL Urine Occult Blood (NEGATIVE) Urine Nitrite (NEGATIVE) Urine Bilirubin (NEGATIVE) Urine Urobilinogen (NEGATIVE) mg/dL Ur Leukocyte Esterase (NEGATIVE) Urine RBC (0-5) Urine WBC (0-5) Ur Squamous Epith Cells (NS,R,O) Urine Bacteria (NS) 10/13/18 10/13/18 Range/Units 15:00 16:25 WBC (4.5-12.0) X10-3/uL RBC (3.23-5.20) x10(6)uL Hgb (11.5-15.5) g/dL Hct (30.0-51.3) % MCV (80-96) fL MCH (27.7-33.6) pg MCHC (32.2-35.4) g/dL RDW (11.5-15.5) % Plt Count (125-369) X10(3)uL MPV (7.4-10.4) fL Neut % (Auto) (46-82) % Lymph % (Auto) (13-37) % [place] % (Auto) (4-12) % Eos % (Auto) (1.0-5.0) % Baso % (Auto) (0-2) % Neut # (Auto) (1.6-8.3) # Lymph # (Auto) (0.6-5.0) # Barber # (Auto) (0.0-1.3) # Eos # (Auto) (0.0-0.8) # Baso # (Auto) (0.0-0.2) # Sodium (135-145) mmol/L Potassium (3.5-5.3) mmol/L Chloride (100-110) mmol/L Carbon Dioxide (21-32) mmol/L BUN (7-18) mg/dL Creatinine (0.55-1.02) mg/dL Est Cr Clr Drug Dosing mL/min Estimated GFR (MDRD) (>60) BUN/Creatinine Ratio (9-20) Glucose (80-116) mg/dL Lactic Acid (0.4-2.2) mmol/L Calcium (8.6-10.2) mg/dL Total Bilirubin (0.1-1.3) mg/dL AST (5-25) IU/L ALT (12-36) U/L Alkaline Phosphatase (56-112) IU/L C-Reactive Protein 1.1 H (0.5-0.9) mg/dL Total Protein (6.0-8.0) g/dL Albumin (3.2-4.6) g/dL Globulin g/dL Albumin/Globulin Ratio Urine Color [place] (YELLOW) Urine Appearance Slightly cloudy (CLEAR) Urine pH 6.0 (5.0-6.5) Ur Specific [place] 1.010 (1.010-1.025) Urine Protein Trace (NEGATIVE) mg/dL Urine Glucose (UA) Normal (NORMAL) mg/dL Urine Ketones Negative (NEGATIVE) mg/dL Urine Occult Blood Moderate H (NEGATIVE) Urine Nitrite Negative (NEGATIVE) Urine Bilirubin Small H (NEGATIVE) Urine Urobilinogen 4 H (NEGATIVE) mg/dL Ur Leukocyte Esterase Small H (NEGATIVE) Urine RBC 0-5 (0-5) Urine WBC 0-5 (0-5) Ur Squamous Epith Cells Few H (NS,R,O) Urine Bacteria Many H (NS) Meds: Medications Generic Name Dose Route Start Last Admin Trade Name Freq PRN Reason Stop Dose Admin Sodium Chloride 1,000 mls @ 500 mls/hr 10/13/18 15:45 10/13/18 15:50 Normal Saline IV 500 mls/hr ASDIRECTED MAZIN Administration Piperacillin Sod/Tazobactam 100 mls @ 200 mls/hr 10/13/18 16:45 10/13/18 16: 59 Sod 4.5 gm/ Sodium Chloride IV 200 mls/hr Q6H MAZIN Administration Discontinued Medications Generic Name Dose Route Start Last Admin Trade Name Freq PRN Reason Stop Dose Admin Iopamidol 96 ml 10/13/18 18:23 10/13/18 18:46 Isovue-370 (76%) IV 10/13/18 18:24 96 ml . DIRECTED ONE Administration - Re-Assessments/Exams Free Text/Narrative Re-Assessment/Exam: 10/13/18 labs reviewed, concern for UTI, no obvious obstruction to my read on plain films; official read pending. Discussed with patient proceeding with non- contrast CT of abdomen, given now seems possibility of pyelonephritis is more likely. Departure - Departure Disposition: Admitted As Inpatient 67 Clinical Impression: Pyelonephritis - Discharge Information Referrals: Ann Chamberlain, [facility] [Primary Care Provider] - Forms: ED Department Discharge <Lance Yu - Last Filed: 10/13/18 19:47> Course - Vital Signs Text/Narrative:: Subsequent Abd Pelvic CT suggestive of a R pyelonephritis, no findings for bowel obstruction. She will be admitted for IP management. Departure - Departure Time of Disposition: 19:46 Condition: Fair - Discharge Information *PRESCRIPTION DRUG MONITORING PROGRAM REVIEWED*: Not Applicable *COPY OF PRESCRIPTION DRUG MONITORING REPORT IN PATIENT JAXON: Not Applicable - Problem List & Annotations (1) Pyelonephritis SNOMED Code(s): 02929531 Code(s): N12 - TUBULO-INTERSTITIAL NEPHRITIS, NOT SPCF ACUTE OR CHRONIC Status: Acute Current Visit: Yes Annotation/Comment:: Admit as IP, IV antibx pending results of UC, hospitalist to see in am. - Problem List Review Problem List Initiated/Reviewed/Updated: Yes - Assessment/Plan Plan: Admit
[2018-10-13] MEDS: Piperacillin/Tazobactam 4.5 GM in Sodium Chloride 0.9% 100 ML IV SCH ×2 (16:59→23:41)
[2018-10-13] MEDS ORDERED: Iopamidol 755 Mg/ML 100 ML Bottle IV ONE (18:23)
[2018-10-13] MEDS ORDERED: QUEtiapine 100 MG Tab PO SCH (21:00)
[2018-10-13] MEDS ORDERED: Ondansetron 4 MG Tab.DIS PO PRN (21:24)
[2018-10-13] MEDS ORDERED: Ketorolac 30 MG/ML SDV IVPUSH PRN (21:34)
[2018-10-13] MEDS: Donepezil 5 MG Tab PO SCH (22:19)
[2018-10-13] MEDS: Sertraline 50 MG Tab PO SCH (22:20)
[2018-10-13] MEDS ORDERED: HYDROmorphone 2 MG/ML SDV IVPUSH ONE ×2 (23:11→23:42)
[2018-10-14] MEDS: Piperacillin/Tazobactam 4.5 GM in Sodium Chloride 0.9% 100 ML IV SCH ×4 (05:45→22:54)
[2018-10-14] MEDS: Nicotine 21 MG/24 Hr Patch TRDERM SCH (08:21)
[2018-10-14] MEDS ORDERED: cloNIDine 0.1 MG Tab PO PRN ×2 (09:04→12:50)
--- NOTE | 2018-10-14 09:15 | CR ---
INDICATION: Possible obstruction, two weeks of generalized pain, right and left lower abdominal pain. ABDOMEN SERIES WITH CHEST: Six images of the abdomen, which included a PA chest with supine and upright views of the abdomen, revealed a nonspecific pattern of gas and feces without evidence of free air or bowel obstruction. Clips compatible with cholecystectomy are noted. Degenerative changes and disk disease are noted at L5-S1. There is a single air fluid level in the upper pelvis area near the midline, which is fairly nonspecific. No definite mass lesions or organomegaly could be identified. The heart did not appear enlarged. The aorta is tortuous. An active infiltrate or effusion was not identified. IMPRESSION: Nonacute abdomen. Report was called to Dr. Fitzpatrick at 1755 hours on 10/13/18. [facility]
[2018-10-14] MEDS: Metoprolol Succinate 25 MG Tab.ER PO SCH (09:27)
[2018-10-14] MEDS: Pantoprazole 40 MG Tab.CR PO SCH (09:27)
[2018-10-14] MEDS: Aspirin 81 MG Tab.EC PO SCH (09:27)
[2018-10-14] MEDS: amLODIPine 10 MG Tab PO SCH (09:27)
[2018-10-14] MEDS: Cholecalciferol (Vitamin D3) 25 MCG Tab PO SCH (09:28)
--- NOTE | 2018-10-14 09:44 | CT ---
INDICATION: Back pain, nausea and vomiting, question obstruction versus pyelonephritis. CT ABDOMEN AND PELVIS WITHOUT AND WITH CONTRAST, COMPLETE: Spiral 2.5 mm axial sections were initially obtained without contrast through the abdomen and pelvis and then through the abdomen with 96 mL Isovue 370 at 2 mL/second, , and compared with 12/06/17 examination. Total exam DLP = 3,092.22 mGy-cm. A definite active infiltrate or effusion was not identified. There is some pleural thickening at the right lung base, likely fibrotic in nature. Linear atelectatic change may be present at the left lung base. There are no calculi noted in the kidneys - no evidence of obstructive uropathy was seen. There are several patchy areas of decreased contrast enhancement noted in the right kidney in the mid pole area that are compatible with areas of pyelonephritis. Additionally, there is a focal decreased density, compatible with a simple cyst, at the lower middle pole, partially exophytic, of the right kidney. No evidence of obstructive uropathy was identified. 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 The gallbladder is absent, compatible with history of its removal. Clips are noted at the cystic duct. The common bile duct is normal in caliber. The liver had a normal appearance. The pancreas, left kidney, and adrenal glands were unremarkable. The retroperitoneum showed no evidence of mass lesions. There are some minimal arterial calcifications noted. The appendix is absent, compatible with history of its removal. Evidence of anastomosis is noted of small bowel in the mid pelvis area. No evidence of bowel obstruction was seen. No organomegaly, other mass lesions, or free fluid collections were identified in the abdomen or pelvis. CT urogram appeared normal as visualized, with a portion of the distal ureters not well seen. The urinary bladder was fairly well opacified and appeared unremarkable. The uterus is absent, compatible with history of its removal. There are what appear to be some phleboliths in the lower pelvis. IMPRESSION: Findings are compatible with focal areas of pyelonephritis in the right kidney. No evidence of obstructive uropathy was seen. No evidence of bowel obstruction was noted. Report was called to Dr. Yu at 1940 hours on 10/13/18. [facility]
[2018-10-14] MEDS: predniSONE 10 MG Tab PO SCH (10:45)
[2018-10-14] MEDS ORDERED: INSULIN ASPART 5 UNIT SUBCUT SCH (12:00)
[2018-10-14] MEDS ORDERED: Acetaminophen 325 MG Tab PO PRN (13:35)
[2018-10-14] MEDS: predniSONE 5 MG Tab PO SCH (13:38)
[2018-10-14] MEDS: Insulin Lispro 100 Unit/ML 3 ML KwikPen SUBCUT SCH ×2 (13:39→18:46)
[2018-10-14] MEDS: Ketorolac 30 MG/ML SDV IVPUSH SCH ×2 (14:35→20:01)
[2018-10-14] MEDS: Sodium Chloride 0.9% 10 ML Syringe FLUSH PRN ×2 (17:02→22:54)
[2018-10-14] MEDS: Sertraline 50 MG Tab PO SCH (20:40)
[2018-10-14] MEDS: Donepezil 5 MG Tab PO SCH (20:40)
[2018-10-14] MEDS ORDERED: Gabapentin 300 MG Cap PO SCH (21:00)
[2018-10-14] MEDS ORDERED: QUEtiapine 100 MG Tab PO SCH (21:00)
[2018-10-14] MEDS ORDERED: Non-Formulary Medication 1 Each (Insulin Degludec [Tresiba Flextouch U-100] 20 UNITS) SUBCUT SCH (21:00)
[2018-10-14] MEDS ORDERED: Melatonin 3 MG Tab PO ONE (23:37)
[2018-10-14] MEDS ORDERED: diphenhydrAMINE 50 MG/ML SDV IVPUSH ONE (23:38)
[2018-10-14] MEDS ORDERED: Melatonin 3 MG Tab **OWN MED PO ONE (23:45)
[2018-10-15] MEDS: Ketorolac 30 MG/ML SDV IVPUSH SCH ×2 (01:29→09:21)
[2018-10-15] MEDS: Sodium Chloride 0.9% 10 ML Syringe FLUSH PRN ×2 (01:30→05:37)
[2018-10-15] MEDS: Piperacillin/Tazobactam 4.5 GM in Sodium Chloride 0.9% 100 ML IV SCH ×2 (04:56→10:57)
[2018-10-15] MEDS: Pantoprazole 40 MG Tab.CR PO SCH (07:08)
[2018-10-15] MEDS: Aspirin 81 MG Tab.EC PO SCH (09:20)
[2018-10-15] MEDS: Metoprolol Succinate 25 MG Tab.ER PO SCH (09:20)
[2018-10-15] MEDS: amLODIPine 10 MG Tab PO SCH (09:20)
[2018-10-15] MEDS: predniSONE 10 MG Tab PO SCH (09:20)
[2018-10-15] MEDS: Nicotine 21 MG/24 Hr Patch TRDERM SCH (09:21)
[2018-10-15] MEDS: Insulin Lispro 100 Unit/ML 3 ML KwikPen SUBCUT SCH ×2 (09:21→12:17)
[2018-10-15] MEDS: Cholecalciferol (Vitamin D3) 25 MCG Tab PO SCH (09:23)
[2018-10-15 09:25] VITALS: BP 128/69; PULSE 77
--- NOTE | 2018-10-15 10:27 | PCM.DCSUM1 ---
Discharge Summary - Hospital Course HPI Initial Comments: A 63-year-old female who presented with stomach pain for the past two weeks. [place] so she didn't want to be evaluated. She notes severe diarrhea over the past 2 weeks, last bowel movement was yesterday. She vomited a couple days ago but yesterday(Friday). Has not really eaten or drank anything when she presented to ER. Her diet has been soup. Had severe, cramping abdominal pain, worse after eating. Also has noted increased frequency and urgency of urination, and some back pain. She has not been on any antibiotic recently, she drinks only bottled water when at the cabin. No fevers, chills, sweats. No cough, shortness of breath, chest pain. From ER physician report: history SBO managed conservatively last fall in [place]. history multiple abdominal surgeries, she thinks last one was 10 years ago. She has a past medical history of diabetes, last A1c approximately 6.9, on metformin, NovoLog TID, Bydureon doses , and ba. History also significant for optic neuritis and immunosuppressed on prednisone 15mg qd and max dose azathioprine. She is blind in her left eye. Diagnosis: Stroke: No - Discharge Data Discharge Date: 10/15/18 Discharge Disposition: Home, Self-Care 01 Condition: Good - Discharge Diagnosis/Problem(s) (1) Pyelonephritis SNOMED Code(s): 37137227 ICD Code: N12 - TUBULO-INTERSTITIAL NEPHRITIS, NOT SPCF ACUTE OR CHRONIC Status: Acute Current Visit: Yes Problem Details: confirmed on CT, lactid acid returned to normal. UC grew Klebsiella sp. pansensitive. Discharge on Amoxicillin-Clavulanate for to complete 14 day course. (2) Abdominal pain in female patient SNOMED Code(s): 25903049, 858829113 ICD Code: R10.9 - UNSPECIFIED ABDOMINAL PAIN Status: Acute Current Visit : No Problem Details: improving (3) DM2 (diabetes mellitus, type 2) SNOMED Code(s): 88277603 ICD Code: E11.9 - TYPE 2 DIABETES MELLITUS WITHOUT COMPLICATIONS Status: Acute Current Visit: No Problem Details: Previously well-controlled, with increase in prednisone the patient's control poorer. Sliding scale insulin and 4 times a day glucometer checks. (4) Hypertension SNOMED Code(s): 28589874 ICD Code: I10 - ESSENTIAL (PRIMARY) HYPERTENSION Status: Acute Current Visit: No Problem Details: We will use IV beta vishnu therapy and titrated as needed. Qualifiers: Hypertension type: essential hypertension Qualified Code(s): I10 - Essential (primary) hypertension (5) Optic neuritis SNOMED Code(s): 92961544 ICD Code: H46.9 - UNSPECIFIED OPTIC NEURITIS Status: Acute Current Visit : Yes (6) Blindness of left eye SNOMED Code(s): 873336071 ICD Code: H54.40 - BLINDNESS, ONE EYE, UNSPECIFIED EYE Status: Acute Current Visit: Yes - Patient Summary/Data Hospital Course: Patient was admitted for pyelonephritis, immunosuppressed due to optic neuritis. She had elevated lactic acid but normal WBC due to immunosuppression, repeat lactic acid came down to normal. Patient completed 2 days of IV Zosyn. Had improvement of her CVA tenderness and abdominal pain. She did have behavioral issues in the evenings in part due to her blindness and also dementia /personality disorders, staff was able to redirect and patient settle on both evenings. Urine culture came back morning of discharge positive for Klebsiella sp, pansensitive. Patient will be discharge on Amoxicillin-Clavulanate for 12 days to complete a 14 day course for pyelonephritis. Patient had IV contrast with her CT abdomen/pelvis so will restart her Metformin on morning of October 16. - Patient Instructions Diet: Diabetic Diet Activity: As Tolerated Showering/Bathing: May Shower Notify Provider of: Fever, Increased Pain, Nausea and/or Vomiting Other/Special Instructions: Follow up with Ann Chamberlain in 2 weeks for repeat urine test to make sure that your infection has cleared. Restart your metformin tomorrow morning(Oct 16) as you had IV contrast in ER and it was held for 48 hours to protect your kidneys. Your kidney function is normal. - Discharge Plan *PRESCRIPTION DRUG MONITORING PROGRAM REVIEWED*: Not Applicable *COPY OF PRESCRIPTION DRUG MONITORING REPORT IN PATIENT JAXON: Not Applicable Prescriptions/Med Rec: Amoxicillin/Potassium Clav [Amox Tr-K Clv 875-125 mg Tab] 1 each PO BID 12 Days #24 tablet L Acidophil/B Lactis/B Longum [Florajen3] 460 mg PO BID 12 Days #24 capsule Home Medications: Home Meds amLODIPine [Norvasc] 10 mg PO DAILY 10/11/16 [History] Aspirin [Halfprin] 81 mg PO DAILY 12/06/17 [History] Cholecalciferol (Vitamin D3) [Vitamin D3] 1,000 units PO DAILY 12/06/17 [History ] Insulin Aspart [NovoLOG] 18 units SUBCUT TIDMEALS PRN 12/06/17 [History] Insulin Degludec [Tresiba Flextouch U-100] 50 units SUBCUT BEDTIME 12/06/17 [ History] Metoprolol Succinate [Toprol XL] 25 mg PO DAILY 12/06/17 [History] Omeprazole 40 mg PO DAILY 12/06/17 [History] Travoprost [Travatan Z] 1 drop EYERT BEDTIME 12/06/17 [History] azaTHIOprine [Imuran] 225 mg PO DAILY 12/06/17 [History] metFORMIN [Glucophage] 1,000 mg PO BIDMEALS 12/06/17 [History] predniSONE [Prednisone] 10 mg PO DAILY 12/06/17 [History] Donepezil [Aricept] 5 mg PO BEDTIME 10/13/18 [History] Exenatide Microspheres [Bydureon Pen] 2 mg SQ TH@2100 10/13/18 [History] Gabapentin [Neurontin] 300 mg PO BEDTIME 10/13/18 [History] Albuterol [Ventolin HFA] 2 puff INH Q4H PRN 10/14/18 [History] Ferrous Sulfate 325 mg PO DAILY 10/14/18 [History] Melatonin 6 mg PO BEDTIME 10/14/18 [History] QUEtiapine Fumarate [Quetiapine Fumarate] 400 mg PO BEDTIME 10/14/18 [History] QUEtiapine [SEROquel] 200 mg PO BEDTIME 10/14/18 [History] Sertraline [Zoloft] 150 mg PO BEDTIME 10/14/18 [History] Ubidecarenone [Co Q-10] 100 mg PO DAILY 10/14/18 [History] Vitamin B Complex 1 tab PO DAILY 10/14/18 [History] cloNIDine [Catapres] 0.1 mg PO TID PRN 10/14/18 [History] predniSONE [Prednisone] 5 mg PO DAILY 10/14/18 [History] Amoxicillin/Potassium Clav [Amox Tr-K Clv 875-125 mg Tab] 1 each PO BID 12 Days #24 tablet 10/15/18 [Rx] L Acidophil/B Lactis/B Longum [Florajen3] 460 mg PO BID 12 Days #24 capsule [Rx] Patient Handouts: Fall Prevention in the Home, Adult, Blood Glucose Monitoring , Adult, Venous Thromboembolism Prevention Forms: ED Department Discharge Referrals: Ann Chamberlain NP [Primary Care Provider] - - Discharge Summary/Plan Comment DC Time >30 min.: Yes - Patient Data Vitals - Most Recent: Last Vital Signs Temp 36.4 C 10/15/18 08:00 Pulse 77 10/15/18 09:20 Resp 16 10/15/18 08:00 BP 128/69 10/15/18 09:20 Pulse Ox 91 L 10/15/18 08:00 Weight - Most Recent: 84.964 kg I&O - Last 24 hours: Intake & Output 10/14/18 10/15/18 10/15/18 22:59 06:59 14:59 Intake Total 86 Balance 86 Lab Results - Last 24 hrs: Laboratory Results - last 24 hr 10/13/18 10/14/18 10/14/18 Range/Units 16:25 12:05 12:56 WBC (4.5-12.0) X10-3/uL RBC (3.23-5.20) x10(6)uL Hgb (11.5-15.5) g/dL Hct (30.0-51.3) % MCV (80-96) fL MCH (27.7-33.6) pg MCHC (32.2-35.4) g/dL RDW (11.5-15.5) % Plt Count (125-369) X10(3)uL MPV (7.4-10.4) fL Neut % (Auto) (46-82) % Lymph % (Auto) (13-37) % [place] % (Auto) (4-12) % Eos % (Auto) (1.0-5.0) % Baso % (Auto) (0-2) % Neut # (Auto) (1.6-8.3) # Lymph # (Auto) (0.6-5.0) # [place] # (Auto) (0.0-1.3) # Eos # (Auto) (0.0-0.8) # Baso # (Auto) (0.0-0.2) # Sodium (135-145) mmol/L Potassium (3.5-5.3) mmol/L Chloride (100-110) mmol/L Carbon Dioxide (21-32) mmol/L BUN (7-18) mg/dL Creatinine (0.55-1.02) mg/dL Est Cr Clr Drug Dosing mL/min Estimated GFR (MDRD) (>60) BUN/Creatinine Ratio (9-20) Glucose (80-116) mg/dL POC Glucose 184 H (80-116) mg/dL Lactic Acid 1.1 (0.4-2.2) mmol/L Calcium (8.6-10.2) mg/dL Lipase 159 H (14-72) U/L 10/14/18 10/14/18 10/15/18 Range/Units 17:08 20:18 06:25 WBC 6.6 (4.5-12.0) X10-3/uL RBC 3.87 (3.23-5.20) x10(6)uL Hgb 13.8 (11.5-15.5) g/dL Hct 41.8 (30.0-51.3) % MCV 108.0 H (80-96) fL MCH 35.5 H (27.7-33.6) pg MCHC 32.9 (32.2-35.4) g/dL RDW 20.2 H (11.5-15.5) % Plt Count 346 (125-369) X10(3)uL MPV 7.0 L (7.4-10.4) fL Neut % (Auto) 79.0 (46-82) % Lymph % (Auto) 12.6 L (13-37) % [place] % (Auto) 7.2 (4-12) % Eos % (Auto) 1 (1.0-5.0) % Baso % (Auto) 0 (0-2) % Neut # (Auto) 5.2 (1.6-8.3) # Lymph # (Auto) 0.8 (0.6-5.0) # [place] # (Auto) 0.5 (0.0-1.3) # Eos # (Auto) 0.1 (0.0-0.8) # Baso # (Auto) 0.0 (0.0-0.2) # Sodium (135-145) mmol/L Potassium (3.5-5.3) mmol/L Chloride (100-110) mmol/L Carbon Dioxide (21-32) mmol/L BUN (7-18) mg/dL Creatinine (0.55-1.02) mg/dL Est Cr Clr Drug Dosing mL/min Estimated GFR (MDRD) (>60) BUN/Creatinine Ratio (9-20) Glucose (80-116) mg/dL POC Glucose 260 H 236 H (80-116) mg/dL Lactic Acid (0.4-2.2) mmol/L Calcium (8.6-10.2) mg/dL Lipase (14-72) U/L 10/15/18 10/15/18 Range/Units 06:25 07:35 WBC (4.5-12.0) X10-3/uL RBC (3.23-5.20) x10(6)uL Hgb (11.5-15.5) g/dL Hct (30.0-51.3) % MCV (80-96) fL MCH (27.7-33.6) pg MCHC (32.2-35.4) g/dL RDW (11.5-15.5) % Plt Count (125-369) X10(3)uL MPV (7.4-10.4) fL Neut % (Auto) (46-82) % Lymph % (Auto) (13-37) % [place] % (Auto) (4-12) % Eos % (Auto) (1.0-5.0) % Baso % (Auto) (0-2) % Neut # (Auto) (1.6-8.3) # Lymph # (Auto) (0.6-5.0) # [place] # (Auto) (0.0-1.3) # Eos # (Auto) (0.0-0.8) # Baso # (Auto) (0.0-0.2) # Sodium 142 (135-145) mmol/L Potassium 4.0 (3.5-5.3) mmol/L Chloride 106 (100-110) mmol/L Carbon Dioxide 26 (21-32) mmol/L BUN 10 (7-18) mg/dL Creatinine 0.5 L (0.55-1.02) mg/dL Est Cr Clr Drug Dosing 100.74 mL/min Estimated GFR (MDRD) > 60 (>60) BUN/Creatinine Ratio 20.0 (9-20) Glucose 197 H D (80-116) mg/dL POC Glucose 160 H (80-116) mg/dL Lactic Acid (0.4-2.2) mmol/L Calcium 8.6 (8.6-10.2) mg/dL Lipase (14-72) U/L MANJU Results - Last 24 hrs: Microbiology 10/13/18 16:25 Urine Culture - Final Urine, Voided Klebsiella Pneumoniae Med Orders - Current: Current Medications Acetaminophen (Tylenol) 650 mg PO Q4H PRN PRN Reason: Abdominal Pain Amlodipine Besylate (Norvasc) 10 mg PO DAILY [facility] Last Admin: 10/15/18 09:20 Dose: 10 mg Aspirin (Halfprin) 81 mg PO DAILY [facility] Last Admin: 10/15/18 09:20 Dose: 81 mg Cholecalciferol (Vitamin D3) 25 mcg PO DAILY [facility] Last Admin: 10/15/18 09:23 Dose: 25 mcg Clonidine HCl (Catapres) 0.1 mg PO TID PRN PRN Reason: ANXIETY Donepezil HCl (Aricept) 5 mg PO BEDTIME [facility] Last Admin: 10/14/18 20:40 Dose: 5 mg Gabapentin (Neurontin) 300 mg PO BEDTIME [facility] Last Admin: 10/14/18 20:38 Dose: 300 mg Sodium Chloride (Normal Saline) 1,000 mls @ 500 mls/hr IV ASDIRECTED [facility] Last Admin: 10/13/18 15:50 Dose: 500 mls/hr Piperacillin Sod/Tazobactam (Sod 4.5 gm/ Sodium Chloride) 100 mls @ 200 mls/hr IV Q6H [facility] Last Admin: 10/15/18 04:56 Dose: 200 mls/hr Insulin Human Lispro (Humalog) 0 unit SUBCUT TIDMEALS [facility]; Protocol Last Admin: 10/15/18 09:21 Dose: 1 unit Ketorolac Tromethamine (Toradol) 30 mg IVPUSH Q6H [facility] Stop: 10/18/18 21:34 Last Admin: 10/15/18 09:21 Dose: 30 mg Metformin HCl (Glucophage) 1,000 mg PO BIDMEALS [facility] Metoprolol Succinate (Toprol Xl) 25 mg PO DAILY [facility] Last Admin: 10/15/18 09:20 Dose: 25 mg Nicotine (Habitrol) 21 mg TRDERM DAILY [facility] Last Admin: 10/15/18 09:21 Dose: 21 mg Ondansetron HCl (Zofran Odt) 4 mg PO Q6H PRN PRN Reason: nausea, able to take PO Last Admin: 10/14/18 05:29 Dose: 4 mg Pantoprazole Sodium (Protonix) 40 mg PO DAILY@0600 [facility] Last Admin: 10/15/18 07:08 Dose: 40 mg Prednisone (Prednisone) 10 mg PO DAILY [facility] Last Admin: 10/15/18 09:20 Dose: 10 mg Prednisone (Prednisone) 5 mg PO DAILY [facility] Last Admin: 10/14/18 13:38 Dose: 5 mg Quetiapine Fumarate (Seroquel) 600 mg PO BEDTIME [facility] Last Admin: 10/14/18 20:42 Dose: 600 mg Sertraline HCl (Zoloft) 150 mg PO BEDTIME [facility] Last Admin: 10/14/18 20:40 Dose: 150 mg Sodium Chloride (Saline Flush) 10 ml FLUSH ASDIRECTED PRN PRN Reason: Keep Vein Open Last Admin: 10/15/18 05:37 Dose: 10 ml Discontinued Medications Clonidine HCl (Catapres) 0.05 mg PO TID PRN PRN Reason: Hypertension Diphenhydramine HCl (Benadryl) 50 mg IVPUSH ONETIME ONE Stop: 10/14/18 23:39 Last Admin: 10/14/18 23:46 Dose: 50 mg Hydromorphone HCl (Dilaudid) 1 mg IVPUSH ONETIME ONE Stop: 10/13/18 23:12 Last Admin: 10/13/18 23:32 Dose: 1 mg Hydromorphone HCl (Dilaudid) 1 mg IVPUSH ONETIME ONE Stop: 10/13/18 23:43 Last Admin: 10/14/18 00:04 Dose: 1 mg Iopamidol (Isovue-370 (76%)) 96 ml IV . DIRECTED ONE Stop: 10/13/18 18:24 Last Admin: 10/13/18 18:46 Dose: 96 ml Ketorolac Tromethamine (Toradol) 30 mg IVPUSH Q6H PRN PRN Reason: Pain Stop: 10/18/18 21:34 Last Admin: 10/13/18 22:18 Dose: 30 mg Melatonin (Melatonin) 9 mg PO ONETIME ONE Stop: 10/14/18 23:46 Last Admin: 10/14/18 23:55 Dose: 9 mg Quetiapine Fumarate (Seroquel) 300 mg PO BEDTIME [facility] Last Admin: 10/13/18 22:19 Dose: 300 mg - Exam General: Reports: Alert, Oriented, Cooperative Lungs: Reports: Clear to Auscultation, Normal Respiratory Effort Cardiovascular: Reports: Regular Rate, Regular Rhythm GI/Abdominal Exam: Normal Bowel Sounds, Soft, No Distention, Tender (improved, slight CVA tenderness on right.)
[2018-10-15] MEDS: predniSONE 5 MG Tab PO SCH (11:00)
[2018-10-16] MEDS ORDERED: metFORMIN 1,000 MG Tab PO SCH (08:00)
--- NOTE | 2018-10-20 13:20 | PCM.HP.2 ---
H&P History of Present Illness - General Date of Service: 10/14/18 Admit Problem/Dx: Admission Diagnosis/Problem Admission Diagnosis/Problem Pyelonephritis Source of Information: Patient, EMS Notes Reviewed - History of Present Illness Initial Comments - Free Text/Narative: A 63-year-old female who presented yesterday with stomach pain for the past two weeks. She was [place] so she didn't want to be evaluated. She notes severe diarrhea over the past 2 weeks, last bowel movement was yesterday. She vomited a couple days ago but yesterday(Friday). Has not really eaten or drank anything when she presented to ER. Her diet has been soup. Had severe, cramping abdominal pain, worse after eating. Also has noted increased frequency and urgency of urination, and some back pain. She has not been on any antibiotic recently, she drinks only bottled water when at the cabin. No fevers, chills, sweats. No cough, shortness of breath, chest pain. From ER physician report: history SBO managed conservatively last fall in [place]. history multiple abdominal surgeries, she thinks last one was 10 years ago. She has a past medical history of diabetes, last A1c approximately 6.9, on metformin, novolog TID, Bydureon doses , and . History also significant for optic neuritis and immunosuppressed on prednisone 15mg qd and max dose azathioprine. She is blind in her left eye. abd Pain Score (Numeric/FACES): 5 - Related Data Allergies/Adverse Reactions: Allergies Allergy/AdvReac Type Severity Reaction Status Date / Time divalproex sodium Allergy Itching Verified 12/06/17 01:45 [From Depakote] duloxetine [From Cymbalta] Allergy Rash Verified 12/06/17 01:45 erythromycin base Allergy Itching Verified 12/06/17 01:45 Home Medications: Home Meds QUEtiapine [SEROquel] 400 mg PO BEDTIME 10/11/16 [History] amLODIPine [Norvasc] 10 mg PO DAILY 10/11/16 [History] Aspirin [Halfprin] 81 mg PO DAILY 12/06/17 [History] Cholecalciferol (Vitamin D3) [Vitamin D3] 1,000 units PO DAILY 12/06/17 [History ] Insulin Aspart [NovoLOG] 5 units SUBCUT TIDMEALS 12/06/17 [History] Insulin Degludec [Tresiba Flextouch U-100] 20 units SUBCUT BEDTIME 12/06/17 [ History] Lactulose 30 ml PO BID PRN 12/06/17 [History] Metoprolol Succinate [Toprol XL] 25 mg PO DAILY 12/06/17 [History] Omeprazole 40 mg PO DAILY 12/06/17 [History] Travoprost [Travatan Z] 1 drop EYERT BEDTIME 12/06/17 [History] azaTHIOprine [Imuran] 200 mg PO DAILY 12/06/17 [History] metFORMIN [Glucophage] 1,000 mg PO BIDMEALS 12/06/17 [History] predniSONE [Prednisone] 10 mg PO DAILY 12/06/17 [History] Donepezil [Aricept] 0.25 mg PO BEDTIME 10/13/18 [History] Exenatide Microspheres [Bydureon Pen] 2 mg SQ WEEKLY 10/13/18 [History] Gabapentin [Neurontin] 300 mg PO BEDTIME 10/13/18 [History] cloNIDine [Catapres] 0.05 mg PO TID PRN 10/14/18 [History] Past Medical History HEENT History: Reports: Impaired Vision, Other (See Below) Other HEENT History: pt legally blind, optic neuritis Cardiovascular History: Reports: Hypertension Respiratory History: Reports: Asthma Gastrointestinal History: Reports: GERD, Other (See Below) Other Gastrointestinal History: snall bowel obstruction Genitourinary History: Reports: Renal Disease [employer]IAN History: Reports: Musculoskeletal History: Reports: Arthritis Other Musculoskeletal History: n Neurological History: Reports: Other (See Below) Other Neuro History: encephalopathy Psychiatric History: Reports: Addiction, Other (See Below) Other Psychiatric History: personality disorder Endocrine/Metabolic History: Reports: Diabetes, Type II - Infectious Disease History Infectious Disease History: Reports: Chicken Pox Other Infectious Disease History: MSSA of right foot - Past Surgical History GI Surgical History: Reports: Colonoscopy Social & Family History - Family History Family Medical History: Noncontributory - Tobacco Use Smoking Status *Q: Current Every Day Smoker Years of Tobacco use: 46 Packs/Tins Daily: 1.5 - Caffeine Use Caffeine Use: Reports: Other Other Caffeine Use: diet coke - Recreational Drug Use Recreational Drug Use: No - Living Situation & Occupation Living situation: Reports: H&P Review of Systems - Review of Systems: Review Of Systems: ROS reveals no pertinent complaints other than HPI. Exam - Exam Exam: See Below - Vital Signs Vital Signs: Last Vital Signs Temp 36.4 C 10/14/18 05:00 Pulse 82 10/14/18 05:00 Resp 16 10/14/18 05:00 BP 145/87 H 10/14/18 05:00 Pulse Ox 95 10/14/18 05:00 Weight: 84.964 kg - Exam General: Alert, Oriented, Cooperative Neck: Supple, Trachea Midline. No: Lymphadenopathy Lungs: Clear to Auscultation, Normal Respiratory Effort Cardiovascular: Regular Rate, Regular Rhythm GI/Abdominal Exam: Normal Bowel Sounds, Soft, No Distention, Tender (Right side , Right CVA tenderness) Extremities: No Pedal Edema Peripheral Pulses: 2+: Radial (L), Radial (R), Posterior Tibial (L), Posterior Tibial (R), Dorsalis Pedis (L), Dorsalis Pedis (R) Skin: Warm, Dry, Intact Neuro Extensive - Mental Status: Alert, Oriented x3 - Patient Data Lab Results Last 24 hrs: Laboratory Results - last 24 hr 10/13/18 10/13/18 10/13/18 Range/Units 15:00 15:00 15:00 WBC 9.6 (4.5-12.0) X10-3/uL RBC 4.00 (3.23-5.20) x10(6)uL Hgb 14.4 (11.5-15.5) g/dL Hct 42.7 (30.0-51.3) % MCV 106.6 H (80-96) fL MCH 35.9 H (27.7-33.6) pg MCHC 33.7 (32.2-35.4) g/dL RDW 20.0 H (11.5-15.5) % Plt Count 356 (125-369) X10(3)uL MPV 7.3 L (7.4-10.4) fL Neut % (Auto) 74.5 (46-82) % Lymph % (Auto) 16.1 (13-37) % [place] % (Auto) 6.9 (4-12) % Eos % (Auto) 1 (1.0-5.0) % Baso % (Auto) 2 (0-2) % Neut # (Auto) 7.0 (1.6-8.3) # Lymph # (Auto) 1.6 (0.6-5.0) # [place] # (Auto) 0.7 (0.0-1.3) # Eos # (Auto) 0.1 (0.0-0.8) # Baso # (Auto) 0.2 (0.0-0.2) # Sodium 139 (135-145) mmol/L Potassium 3.8 (3.5-5.3) mmol/L Chloride 102 (100-110) mmol/L Carbon Dioxide 25 (21-32) mmol/L BUN 12 (7-18) mg/dL Creatinine 0.6 (0.55-1.02) mg/dL Est Cr Clr Drug Dosing 83.95 mL/min Estimated GFR (MDRD) > 60 (>60) BUN/Creatinine Ratio 20.0 (9-20) Glucose 113 (80-116) mg/dL POC Glucose (80-116) mg/dL Lactic Acid 2.6 H (0.4-2.2) mmol/L Calcium 9.2 (8.6-10.2) mg/dL Total Bilirubin 1.4 H (0.1-1.3) mg/dL AST 57 H D (5-25) IU/L ALT 71 H D (12-36) U/L Alkaline Phosphatase 128 H (56-112) IU/L C-Reactive Protein (0.5-0.9) mg/dL Total Protein 6.5 (6.0-8.0) g/dL Albumin 3.1 L (3.2-4.6) g/dL Globulin 3.4 g/dL Albumin/Globulin Ratio 0.9 Urine Color (YELLOW) Urine Appearance (CLEAR) Urine pH (5.0-6.5) Ur Specific [place] (1.010-1.025) Urine Protein (NEGATIVE) mg/dL Urine Glucose (UA) (NORMAL) mg/dL Urine Ketones (NEGATIVE) mg/dL Urine Occult Blood (NEGATIVE) Urine Nitrite (NEGATIVE) Urine Bilirubin (NEGATIVE) Urine Urobilinogen (NEGATIVE) mg/dL Ur Leukocyte Esterase (NEGATIVE) Urine RBC (0-5) Urine WBC (0-5) Ur Squamous Epith Cells (NS,R,O) Urine Bacteria (NS) 10/13/18 10/13/18 10/13/18 Range/Units 15:00 16:25 20:16 WBC (4.5-12.0) X10-3/uL RBC (3.23-5.20) x10(6)uL Hgb (11.5-15.5) g/dL Hct (30.0-51.3) % MCV (80-96) fL MCH (27.7-33.6) pg MCHC (32.2-35.4) g/dL RDW (11.5-15.5) % Plt Count (125-369) X10(3)uL MPV (7.4-10.4) fL Neut % (Auto) (46-82) % Lymph % (Auto) (13-37) % [place] % (Auto) (4-12) % Eos % (Auto) (1.0-5.0) % Baso % (Auto) (0-2) % Neut # (Auto) (1.6-8.3) # Lymph # (Auto) (0.6-5.0) # [place] # (Auto) (0.0-1.3) # Eos # (Auto) (0.0-0.8) # Baso # (Auto) (0.0-0.2) # Sodium (135-145) mmol/L Potassium (3.5-5.3) mmol/L Chloride (100-110) mmol/L Carbon Dioxide (21-32) mmol/L BUN (7-18) mg/dL Creatinine (0.55-1.02) mg/dL Est Cr Clr Drug Dosing mL/min Estimated GFR (MDRD) (>60) BUN/Creatinine Ratio (9-20) Glucose (80-116) mg/dL POC Glucose 71 L (80-116) mg/dL Lactic Acid (0.4-2.2) mmol/L Calcium (8.6-10.2) mg/dL Total Bilirubin (0.1-1.3) mg/dL AST (5-25) IU/L ALT (12-36) U/L Alkaline Phosphatase (56-112) IU/L C-Reactive Protein 1.1 H (0.5-0.9) mg/dL Total Protein (6.0-8.0) g/dL Albumin (3.2-4.6) g/dL Globulin g/dL Albumin/Globulin Ratio Urine Color [place] (YELLOW) Urine Appearance Slightly cloudy (CLEAR) Urine pH 6.0 (5.0-6.5) Ur Specific [place] 1.010 (1.010-1.025) Urine Protein Trace (NEGATIVE) mg/dL Urine Glucose (UA) Normal (NORMAL) mg/dL Urine Ketones Negative (NEGATIVE) mg/dL Urine Occult Blood Moderate H (NEGATIVE) Urine Nitrite Negative (NEGATIVE) Urine Bilirubin Small H (NEGATIVE) Urine Urobilinogen 4 H (NEGATIVE) mg/dL Ur Leukocyte Esterase Small H (NEGATIVE) Urine RBC 0-5 (0-5) Urine WBC 0-5 (0-5) Ur Squamous Epith Cells Few H (NS,R,O) Urine Bacteria Many H (NS) 10/14/18 Range/Units 07:43 WBC (4.5-12.0) X10-3/uL RBC (3.23-5.20) x10(6)uL Hgb (11.5-15.5) g/dL Hct (30.0-51.3) % MCV (80-96) fL MCH (27.7-33.6) pg MCHC (32.2-35.4) g/dL RDW (11.5-15.5) % Plt Count (125-369) X10(3)uL MPV (7.4-10.4) fL Neut % (Auto) (46-82) % Lymph % (Auto) (13-37) % [place] % (Auto) (4-12) % Eos % (Auto) (1.0-5.0) % Baso % (Auto) (0-2) % Neut # (Auto) (1.6-8.3) # Lymph # (Auto) (0.6-5.0) # [place] # (Auto) (0.0-1.3) # Eos # (Auto) (0.0-0.8) # Baso # (Auto) (0.0-0.2) # Sodium (135-145) mmol/L Potassium (3.5-5.3) mmol/L Chloride (100-110) mmol/L Carbon Dioxide (21-32) mmol/L BUN (7-18) mg/dL Creatinine (0.55-1.02) mg/dL Est Cr Clr Drug Dosing mL/min Estimated GFR (MDRD) (>60) BUN/Creatinine Ratio (9-20) Glucose (80-116) mg/dL POC Glucose 107 (80-116) mg/dL Lactic Acid (0.4-2.2) mmol/L Calcium (8.6-10.2) mg/dL Total Bilirubin (0.1-1.3) mg/dL AST (5-25) IU/L ALT (12-36) U/L Alkaline Phosphatase (56-112) IU/L C-Reactive Protein (0.5-0.9) mg/dL Total Protein (6.0-8.0) g/dL Albumin (3.2-4.6) g/dL Globulin g/dL Albumin/Globulin Ratio Urine Color (YELLOW) Urine Appearance (CLEAR) Urine pH (5.0-6.5) Ur Specific [place] (1.010-1.025) Urine Protein (NEGATIVE) mg/dL Urine Glucose (UA) (NORMAL) mg/dL Urine Ketones (NEGATIVE) mg/dL Urine Occult Blood (NEGATIVE) Urine Nitrite (NEGATIVE) Urine Bilirubin (NEGATIVE) Urine Urobilinogen (NEGATIVE) mg/dL Ur Leukocyte Esterase (NEGATIVE) Urine RBC (0-5) Urine WBC (0-5) Ur Squamous Epith Cells (NS,R,O) Urine Bacteria (NS) Result Diagrams: 10/13/18 15:00 10/13/18 15:00 - Problem List (1) Pyelonephritis SNOMED Code(s): 67382259 ICD Code: N12 - TUBULO-INTERSTITIAL NEPHRITIS, NOT SPCF ACUTE OR CHRONIC Status: Acute Current Visit: Yes Problem Details: Admit as IP, IV antibx pending results of UC, hospitalist to see in am. (2) Abdominal pain in female patient SNOMED Code(s): 06372408, 697218937 ICD Code: R10.9 - UNSPECIFIED ABDOMINAL PAIN Status: Acute Current Visit : No (3) DM2 (diabetes mellitus, type 2) SNOMED Code(s): 27135600 ICD Code: E11.9 - TYPE 2 DIABETES MELLITUS WITHOUT COMPLICATIONS Status: Acute Current Visit: No Problem Details: Previously well-controlled, with increase in prednisone the patient's control poorer. Sliding scale insulin and 4 times a day glucometer checks. (4) Hypertension SNOMED Code(s): 47978049 ICD Code: I10 - ESSENTIAL (PRIMARY) HYPERTENSION Status: Acute Current Visit: No Problem Details: We will use IV beta vishnu therapy and titrated as needed. Qualifiers: Hypertension type: essential hypertension Qualified Code(s): I10 - Essential (primary) hypertension (5) Optic neuritis SNOMED Code(s): 66648196 ICD Code: H46.9 - UNSPECIFIED OPTIC NEURITIS Status: Acute Current Visit : Yes (6) Blindness of left eye SNOMED Code(s): 461142443 ICD Code: H54.40 - BLINDNESS, ONE EYE, UNSPECIFIED EYE Status: Acute Current Visit: Yes Problem List Initiated/Reviewed/Updated: Yes Orders Last 24hrs: Active Orders 24 hr Category Date Time Status Patient Status [ADT] Routine ADT 10/13/18 21:24 Active Blood Glucose Check, Bedside [RC] WITHMEALSANDBED Care 10/13/18 21:24 Active Height and Weight [RC] UPON Care 10/13/18 21:24 Active Intake and Output [RC] QSHIFT Care 10/13/18 21:24 Active Oxygen Therapy [RC] PRN Care 10/13/18 21:24 Active Up With Assistance [RC] ASDIRECTED Care 10/13/18 21:24 Active Up to Chair [RC] ASDIRECTED Care 10/13/18 21:24 Active VTE/DVT Education [RC] Per Unit Routine Care 10/13/18 21:24 Active Vital Signs [RC] Q4H Care 10/13/18 21:24 Active Consistent Carbohydrate Diet [DIET] Diet 10/13/18 Dinner Active Abdomen Pelvis w wo Cont [CT] Stat Exams 10/13/18 17:44 Taken Abdomen Series w Chest 1V [CR] Stat Exams 10/13/18 15:42 Taken CULTURE URINE [RM] Stat Lab 10/13/18 16:25 Received LIPASE, SERUM Stat Lab 10/13/18 16:25 Received Donepezil [Aricept] Med 10/13/18 21:00 Active 5 mg PO BEDTIME Ketorolac [Toradol] Med 10/13/18 21:34 Active 30 mg IVPUSH Q6H PRN Nicotine [Habitrol] Med 10/14/18 09:00 Active 21 mg TRDERM DAILY Ondansetron [Zofran ODT] Med 10/13/18 21:24 Active 4 mg PO Q6H PRN Piperacillin/Tazobactam [Zosyn] 4.5 gm Med 10/13/18 16:45 Active Sodium Chloride 0.9% [Normal Saline] 100 ml IV Q6H QUEtiapine [SEROquel] Med 10/13/18 21:00 Active 300 mg PO BEDTIME Sertraline [Zoloft] Med 10/13/18 21:00 Active 150 mg PO BEDTIME Sodium Chloride 0.9% [Normal Saline] 1,000 ml Med 10/13/18 15:45 Active IV ASDIRECTED Sodium Chloride 0.9% [Saline Flush] Med 10/14/18 06:27 Active 10 ml FLUSH ASDIRECTED PRN Resuscitation Status Routine Resus Stat 10/13/18 19:50 Ordered Medication Orders Donepezil HCl (Aricept) 5 mg PO BEDTIME [facility] Last Admin: 10/13/18 22:19 Dose: 5 mg Sodium Chloride (Normal Saline) 1,000 mls @ 500 mls/hr IV ASDIRECTED [facility] Last Admin: 10/13/18 15:50 Dose: 500 mls/hr Piperacillin Sod/Tazobactam (Sod 4.5 gm/ Sodium Chloride) 100 mls @ 200 mls/hr IV Q6H [facility] Last Admin: 10/14/18 05:45 Dose: 200 mls/hr Admin: 10/13/18 23:41 Dose: 200 mls/hr Admin: 10/13/18 16:59 Dose: 200 mls/hr Ketorolac Tromethamine (Toradol) 30 mg IVPUSH Q6H PRN PRN Reason: Pain Stop: 10/18/18 21:34 Last Admin: 10/13/18 22:18 Dose: 30 mg Nicotine (Habitrol) 21 mg TRDERM DAILY [facility] Last Admin: 10/14/18 08:21 Dose: 21 mg Ondansetron HCl (Zofran Odt) 4 mg PO Q6H PRN PRN Reason: nausea, able to take PO Last Admin: 10/14/18 05:29 Dose: 4 mg Quetiapine Fumarate (Seroquel) 300 mg PO BEDTIME [facility] Last Admin: 10/13/18 22:19 Dose: 300 mg Sertraline HCl (Zoloft) 150 mg PO BEDTIME [facility] Last Admin: 10/13/18 22:20 Dose: 150 mg Sodium Chloride (Saline Flush) 10 ml FLUSH ASDIRECTED PRN PRN Reason: Keep Vein Open Assessment/Plan Comment:: 1. Admit for pyelonephritis, immunosuppressed, abdominal pain. 2. Zosyn 4.5 gram IV q 6h, repeat lactic acid at noon. 3. Consistent carbohydrate diet, blood glucose with meals & at bedtime. 4. Continue home medications. 5. Anticipate discharge tomorrow if she responds well to antibiotics. - Mortality Measure Prognosis:: Good
== END 2018-10-15 12:30 | disposition home or self-care (01) | DRG 690 ==
LOC: FB.ED 14:18 → FB.MS 19:58
PROVIDERS: ADMIT Family Medicine; ATTEND Family Medicine
DX: N12 Tubulo-interstitial nephritis, not specified as acute or chronic (principal); H54.8 Legal blindness, as defined in USA; H46.9 Unspecified optic neuritis; J45.909 Unspecified asthma, uncomplicated; K21.9 Gastro-esophageal reflux disease without esophagitis; N28.9 Disorder of kidney and ureter, unspecified; M19.90 Unspecified osteoarthritis, unspecified site; I10 Essential (primary) hypertension; E11.9 Type 2 diabetes mellitus without complications; Z88.8 Allergy status to other drugs, medicaments and biological substances; F17.200 Nicotine dependence, unspecified, uncomplicated; Z79.82 Long term (current) use of aspirin; Z79.4 Long term (current) use of insulin; Z79.899 Other long term (current) drug therapy; H54.62 Unqualified visual loss, left eye, normal vision right eye
CPT/HCPCS: 36415; 74022; 74178; 80053; 81001; 83605; 83690; 85025; 86140; 87086; 87088; 87186; 96361; 96374; 99284; 99285; J2543; J7030 ×2; Q9967; 80048; 82962; A9270-GY; J1170; J1200; J1815; J1885